=== PATIENT | male | born 1950 | race Caucasian/White ===

== ENCOUNTER 2017-11-12 15:59 | Inpatient (IN) | payer MEDICARE, OTHER ==
[2017-11-12] VITALS (14 sets, daily range): BP systolic 135–153; BP diastolic 62–109
[~2017-11-12] VITALS: Ht 167.6 cm; Wt 74.1 kg
--- OUTSIDE RECORDS SUMMARY | 2017-11-12 16:04 | XMS REPORT | Continuity of Care Document ---
Author Author [facility] Address Unknown Phone Unavailable Allergies There is no data. Medications There is no data. Problems Date Dx Coded Attending Type Code Diagnosis Diagnosed By 06/12/2013 RHONDA STEVENSON DO V06.1 TDAP DX Procedures There is no data. Results Test Result Range Comp. Metabolic Panel (14) - 02/21/17 09:38 Glucose, Serum 93 mg/dL 65-99 BUN 15 mg/dL 8-27 Creatinine, Serum 0.89 mg/dL 0.76-1.27 eGFR If NonAfricn Am 87 mL/min/1.73 >59 eGFR If Africn Am 101 mL/min/1.73 >59 BUN/Creatinine Ratio 17 10-24 Sodium, Serum 142 mmol/L 134-144 Potassium, Serum 4.9 mmol/L 3.5-5.2 Chloride, Serum 103 mmol/L 96-106 Carbon Dioxide, Total 24 mmol/L 18-29 Calcium, Serum 9.3 mg/dL 8.6-10.2 Protein, Total, Serum 6.6 g/dL 6.0-8.5 Albumin, Serum 4.1 g/dL 3.6-4.8 Globulin, Total 2.5 g/dL 1.5-4.5 A/G Ratio 1.6 1.2-2.2 Bilirubin, Total 0.5 mg/dL 0.0-1.2 Alkaline Phosphatase, S 86 IU/L 39-117 AST (SGOT) 11 IU/L 0-40 ALT (SGPT) 8 IU/L 0-44 Lipid Panel - 02/21/17 09:38 Cholesterol, Total 209 mg/dL 100-199 Triglycerides 119 mg/dL 0-149 HDL Cholesterol 55 mg/dL >39 VLDL Cholesterol Brett 24 mg/dL 5-40 LDL Cholesterol Calc 130 mg/dL 0-99 Encounters ACCT No. Visit Date/Time Discharge Status Pt. Type Provider Facility Loc./Unit Complaint [id number] 06/12/2013 10:25:00 06/12/2013 23:59:59 CLS Outpatient RHONDA STEVENSON DO [id number] 02/22/2017 08:07:00 Document Registration [id number] 05/21/2017 16:20:00 05/21/2017 23:59:59 CLS Outpatient RAJIV CORTEZ APRN [facility] [id number] 02/23/2014 11:41:07 02/23/2014 23:59:00 DIS Outpatient [facility] FRDCCL [id number] 02/08/2014 11:01:14 02/08/2014 23:59:00 DIS Outpatient [facility] [id number]
--- OUTSIDE RECORDS SUMMARY | 2017-11-12 16:04 | XMS REPORT ---
Author RHONDA [facility] eClinical[employer] Address Unknown Phone Unavailable Care Team Providers Care Ski Patrol Director Name Role Phone RHONDA STEVENSON CP Unavailable Allergies No Known Allergies Problems Problem Type Condition Code Onset Dates Condition Status Assessment Encounter for immunization Z23 Active Problem DTAP TEST V06.1 Active Medications No Known Medications Procedures Procedure Coding System Code Date SINGLE IMMUNIZATION ADMIN CPT-4 22467 May 17, 2015 FLUARIX QUAD (3 & UP)-GSK-2014 CPT-4 05055 May 17, 2015 Results No Known Results Immunizations Vaccine Administration Date FLUARIX QUAD (3 & UP)-GSK-2014May 17, 2015 Summary Purpose eClinicalWorks Submission
--- OUTSIDE RECORDS SUMMARY | 2017-11-12 16:04 | XMS REPORT ---
Author Author RAJIV CORTEZ Organization e[employer] Address Unknown Phone Unavailable Care Team Providers Care Structural Metal Worker Name Role Phone RAJIV CORTEZ CP Unavailable Allergies, Adverse Reactions, Alerts Substance Reaction Event Type sulfa drugs Swollen/Sore Tongue Drug Allergy Problems Problem Type Condition Code Onset Dates Condition Status Assessment Establishing care with new doctor, encounter for Z71.89 Active Assessment Left shoulder pain M25.512 Active Problem DTAP TEST V06.1 Active Assessment Hard of hearing, bilateral H91.93 Active Assessment Nicotine abuse Z72.0 Active Medications No Known Medications Procedures Procedure Coding System Code Date Office Visit, New Pt., Level 3 CPT-4 92381 Jun 23, 2015 [facility] VISIT NEW PATIENT CPT-4 G0466 Jun 23, 2015 Vital Signs Date/Time: Jun 23, 2015 Temperature 98.2 F Weight 157.4 lbs Height 67.0 in BMI 24.65 Index Blood Pressure Diastolic 72 mmHg Blood Pressure Systolic 132 mmHg Cardiac Monitoring Heart Rate 64 bpm Results No Known Results Summary Purpose eClinicalWorks Submission
--- OUTSIDE RECORDS SUMMARY | 2017-11-12 16:04 | XMS REPORT ---
Author Author RAJIV CORTEZ [facility] Address [address] [place] [address] Care Team Providers Care Bench Assembler Battery Name Role Phone RAJIV CORTEZ Unavailable PROBLEMS Type Condition ICD9-CM Code FTI29-RR Code Onset Dates Condition Status SNOMED Code Problem Benign prostatic hyperplasia with lower urinary tract symptoms N40.1 Active 072996241 Problem DTAP TEST V06.1 Active Problem History of colon polyps Z86.010 Active 684925939 Problem Nicotine abuse Z72.0 Active 92415200 Problem Bradycardia R00.1 Active 08447451 ALLERGIES Substance Reaction Event Type Date Status Sulfamethoxazole-Trimethoprim Unknown Drug Allergy Jul, Active SOCIAL HISTORY No smoking Hx information available PLAN OF CARE Activity Details Follow Up 6 Months Reason:check up and fasting labs VITAL SIGNS Height 67.0 in 2016-07-18 Weight 165.7 lbs 2016-07-18 Temperature 98.4 degrees Fahrenheit 2016-07-18 Heart Rate 72 bpm 2016-07-18 Respiratory Rate 18 2016-07-18 BMI 25.95 kg/m2 2016-07-18 Blood pressure systolic 142 mmHg 2016-07-18 Blood pressure diastolic 78 mmHg 2016-07-18 MEDICATIONS Medication Instructions Dosage Frequency Start Date End Date Duration Status Flonase Allergy Relief 50 MCG/ACT Nasally Once a day 1 spray in each nostril 24h Active RESULTS No Results PROCEDURES Procedure Date Ordered Related Diagnosis Body Site [facility] VISIT ESTABLISHED PATIENT Jul 18, 2016 Office Visit, Est Pt., Level 3 Jul 18, 2016 IMMUNIZATIONS No Known Immunizations
[2017-11-12 16:14] LABS: BASOPHILS % (AUTO) 0 % (0-10); EOSINOPHILS # (AUTO) 0.1 10^3/uL (0.0-0.3); EOSINOPHILS % (AUTO) 1 % (0-10); HEMATOCRIT 41 % (40-54); HEMOGLOBIN 14.3 G/DL (13.3-17.7); LYMPHOCYTES # (AUTO) 2.9 X 10^3 (1.0-4.0); LYMPHOCYTES % (AUTO) 32 % (12-44); MEAN CORPUSCULAR HEMOGLOBIN 32 PG (25-34); MEAN CORPUSCULAR HGB CONC 35 G/DL (32-36); MEAN CORPUSCULAR VOLUME 92 FL (80-99); MEAN PLATELET VOLUME 10.1 FL (7.4-10.4); MONOCYTES # (AUTO) 1.1 X 10^3 (0.0-1.0); MONOCYTES % (AUTO) 12 % (0-12); NEUTROPHILS % (AUTO) 55 % (42-75); PLATELET COUNT 211 10^3/uL (130-400); RED BLOOD COUNT 4.47 10^6/uL (4.35-5.85); RED CELL DISTRIBUTION WIDTH 13.6 % (10.0-14.5); WHITE BLOOD COUNT 9.1 10^3/uL (4.3-11.0)
[2017-11-12 16:26] LABS: PROTHROMBIN TIME PATIENT 12.8 SEC (12.2-14.7)
[2017-11-12 16:32] LABS: ALANINE AMINOTRANSFERASE 10 U/L (0-55); ALKALINE PHOSPHATASE 71 U/L (40-136); BILIRUBIN,TOTAL 0.6 MG/DL (0.1-1.0); BUN/CREATININE RATIO 12; CALCIUM 9.2 MG/DL (8.5-10.1); CARBON DIOXIDE 22 MMOL/L (21-32); CHLORIDE 105 MMOL/L (98-107); CREATININE SERUM 0.83 MG/DL (0.60-1.30); GFR ESTIMATED > 60; GLUCOSE 89 MG/DL (70-105); POTASSIUM 3.9 MMOL/L (3.6-5.0); SODIUM 138 MMOL/L (135-145); TOTAL PROTEIN 6.6 GM/DL (6.4-8.2)
--- NOTE | 2017-11-12 16:38 | Diagnostic Imaging Report ---
INDICATION: Chest pain and back pain. TIME OF EXAM 4:24 PM COMPARISON: No prior studies are available for comparison. FINDINGS: The heart size is normal. The pulmonary vascularity is unremarkable. The lungs are clear. No infiltrate, effusion or pneumothorax is detected. Impression: No acute cardiopulmonary process is detected. Dictated by: Dictated on workstation # [id number]
[2017-11-12 16:40] LABS: MYOGLOBIN SERUM 40.2 NG/ML (10.0-92.0)
[2017-11-12] MEDS ORDERED: IOHEXOL 350 MG/ML 150 ML (OMNIPAQUE 350) VIAL IV ONE (16:45)
[2017-11-12] MEDS ORDERED: NS 250 ML (IVPB) BAG IV ONE (16:45)
[2017-11-12] MEDS ORDERED: fentaNYL INJECTION 100 MCG/2 ML AMP IVP ONE (17:00)
[2017-11-12] MEDS ORDERED: ONDANSETRON 4 MG/2 ML (SDV) Z0FRAN IVP ONE (17:00)
--- NOTE | 2017-11-12 17:17 | Diagnostic Imaging Report ---
PROCEDURE: CT angiography of the chest with contrast. TECHNIQUE: Multiple contiguous axial images were obtained through the chest after uneventful bolus administration of intravenous contrast. Reconstructed CTA MIP acquisitions were also performed. DATE: November 12, 2017. COMPARISON: Chest radiograph November 12, 2017. INDICATION: 67-year-old male, chest pain. FINDINGS: There is no identified pulmonary nodule or mass. There are upper lobe predominant changes of emphysema. There is nonspecific right lower lobe, mild right middle lobe, and right upper lobe bronchial wall thickening. There is also nonspecific mild left upper lobe and left lower lobe bronchial wall thickening. There are predominantly linear opacities in the dependent aspect of the right lower lobe and also within the left lower lobe most likely reflecting atelectasis. There is no otherwise noted focal airspace consolidation. There is no pneumothorax. There is no pleural effusion. There is no identified pulmonary embolus. The main pulmonary artery is normal in caliber. The heart is not enlarged. There is no identified pericardial effusion. There are atherosclerotic calcifications. There are 2 left-sided renal arteries. There is no identified mediastinal, hilar, or axillary lymph node which meets CT size criteria for adenopathy. There is a 4 mm lesion in the left lobe of the liver on axial image 141 which is too small to characterize. There is a low-attenuation right thyroid nodule on axial image 145 measuring 2.3 cm in size with internal attenuation of 17 Hounsfield units on postcontrast imaging. There is a 2.2 cm left adrenal nodule with internal attenuation measuring 24 Hounsfield units on postcontrast imaging. These adrenal nodules are technically indeterminate. Additional limited evaluation of the visualized portions of the upper abdomen is unremarkable. There are multilevel degenerative changes of the spine. There is no identified acute bony abnormality. IMPRESSION: CT CHEST. 1. No identified pulmonary embolus. 2. Nonspecific multilobar bronchial wall thickening. Mild lower lobe atelectasis. No additional airspace consolidation. 3. Indeterminate bilateral adrenal nodules. Dedicated renal mass protocol CT or MRI with and without contrast for further assessment. Dictated by: Dictated on workstation # [id number]
--- NOTE | 2017-11-12 17:23 | ED Chest Pain ---
General Chief Complaint: Chest Pain Stated Complaint: CP Nursing Triage Note: pt brought to ed via ems. pt states he was at home today mowing the lawn when he started having chest pain around 1200. pt said he stopped and rested and then began working again. pt states he did this several times today. pt's states the pt then began dry heaving for approximately 10 minutes straight without producing emesis. ems was then called at that time. ems states pt was given two nitro and after the second nitro the pt became diaphoretic and vitals dropped. Nursing Sepsis Screen: No Definite Risk Source: patient, EMS Exam Limitations: no limitations History of Present Illness Date Seen by Provider: November 12, 2017 Time Seen by Provider: 16:01 Initial Comments This 67-year-old gentleman presents to the emergency room via EMS after experiencing chest pain with exertion while mowing the lawn and working in the yard. Pain would improve when he rested and worsen with activity. Pain did not change with deep breathing. Patient has no history of cardiac problems. He is a smoker. EMS administered aspirin 324 mg as well as 2 doses of nitroglycerin. Patient tolerated the first dose of nitroglycerin well but developed bradycardia, hypotension, and altered mental status after the second dose. IV fluids were initiated and blood pressure began to return to normal. Pain seems to be focused right of the sternum and radiates to the upper back. Allergies and Home Medications Allergies Coded Allergies: Sulfa (Sulfonamide Antibiotics) (Unverified Adverse Reaction, Mild, 11/12/17 ) pt states sulfa gives him a "sore tongue" Patient Home Medication List Home Medication List Reviewed: Yes Review of Systems Constitutional: diaphoresis EENTM: No Symptoms Reported Respiratory: No Symptoms Reported Cardiovascular: See HPI Gastrointestinal: No Symptoms Reported Genitourinary: No Symptoms Reported Musculoskeletal: no symptoms reported Skin: no symptoms reported Psychiatric/Neurological: See HPI Endocrine: No Symptoms Reported Hematologic/Lymphatic: No Symptoms Reported Past Prmprvb-Yugaem-Obgake Hx Patient Social History Alcohol Use: Denies Use Recreational Drug Use: No Smoking Status: Current Everyday Smoker Type Used: Cigarettes 2nd Hand Smoke Exposure: Yes Recent Foreign Travel: No Contact w/Someone Who Travel: No Recent Infectious Disease Expo: No Physical Abuse: No Sexual Abuse: No Seasonal Allergies Seasonal Allergies: No Past Medical History Surgeries: No Respiratory: No Cardiac: No Neurological: No Genitourinary: No Gastrointestinal: No Musculoskeletal: No Endocrine: No HEENT: No Cancer: No Psychosocial: No Nursing Suicide Risk Score: 0 Integumentary: No Blood Disorders: No Adverse Reaction/Blood Tranf: No Family Medical History Vascular Disease (brain aneurysm) Physical Exam Vital Signs Vital Signs - First Documented 11/12/17 15:59 Temp 96.5 Pulse 48 Resp 20 B/P (MAP) 109/64 (79) Pulse Ox 94 O2 Delivery Room Air Capillary Refill : Less Than 3 Seconds General Appearance: No Apparent Distress, WD/WN HEENT: PERRL/EOMI, Normal ENT Inspection Neck: Normal Inspection Respiratory: Lungs Clear, Normal Breath Sounds, No Accessory Muscle Use, No Respiratory Distress Cardiovascular: No Edema, No Murmur, Normal Peripheral Pulses, Bradycardia Gastrointestinal: Normal Bowel Sounds, Non Tender, Soft Extremity: Normal Inspection, Non Tender, No Pedal Edema Neurologic/Psychiatric: Alert, Oriented x3, No Motor/Sensory Deficits, Normal Mood/Affect, finance clerk II-XII Norm as Tested, Other (patient became alert after the hypotension and bradycardia resolved) Skin: Normal Color, Diaphoresis Progress/Results/Core Measures Lab Results Laboratory Tests Test 11/12/17 16:05 Range/Units White Blood Count 9.1 4.3-11.0 10^3/uL Red Blood Count 4.47 4.35-5.85 10^6/uL Hemoglobin 14.3 13.3-17.7 G/DL Hematocrit 41 40-54 % Mean Corpuscular Volume 92 80-99 FL Mean Corpuscular Hemoglobin 32 25-34 PG Mean Corpuscular Hemoglobin Concent 35 32-36 G/DL Red Cell Distribution Width 13.6 10.0-14.5 % Platelet Count 211 130-400 10^3/uL Mean Platelet Volume 10.1 7.4-10.4 FL Neutrophils (%) (Auto) 55 42-75 % Lymphocytes (%) (Auto) 32 12-44 % Monocytes (%) (Auto) 12 0-12 % Eosinophils (%) (Auto) 1 0-10 % Basophils (%) (Auto) 0 0-10 % Neutrophils # (Auto) 5.0 1.8-7.8 X 10^3 Lymphocytes # (Auto) 2.9 1.0-4.0 X 10^3 Monocytes # (Auto) 1.1 H 0.0-1.0 X 10^3 Eosinophils # (Auto) 0.1 0.0-0.3 10^3/uL Basophils # (Auto) 0.0 0.0-0.1 10^3/uL Prothrombin Time 12.8 12.2-14.7 SEC INR Comment 1.0 0.8-1.4 Activated Partial Thromboplast Time 41 H 24-35 SEC Sodium Level 138 135-145 MMOL/L Potassium Level 3.9 3.6-5.0 MMOL/L Chloride Level 105 98-107 MMOL/L Carbon Dioxide Level 22 21-32 MMOL/L Anion Gap 11 5-14 MMOL/L Blood Urea Nitrogen 10 7-18 MG/DL Creatinine 0.83 0.60-1.30 MG/DL Estimat Glomerular Filtration Rate > 60 BUN/Creatinine Ratio 12 Glucose Level 89 70-105 MG/DL Calcium Level 9.2 8.5-10.1 MG/DL Magnesium Level 2.0 1.8-2.4 MG/DL Total Bilirubin 0.6 0.1-1.0 MG/DL Aspartate Amino Transf (AST/SGOT) 13 5-34 U/L Alanine Aminotransferase (ALT/SGPT) 10 0-55 U/L Alkaline Phosphatase 71 40-136 U/L Myoglobin 40.2 10.0-92.0 NG/ML Troponin I < 0.30 <0.30 NG/ML Total Protein 6.6 6.4-8.2 GM/DL Albumin 4.0 3.2-4.5 GM/DL My Orders Orders - TIFFANY BREWER MD Cbc With Automated Diff (11/12/17 16:04) Magnesium (11/12/17 16:04) Chest 1 View, Ap/Pa Only (11/12/17 16:04) Ekg Tracing (11/12/17 16:04) Cardiac Profile 1 (11/12/17 16:04) Comprehensive Metabolic Panel (11/12/17 16:04) Myoglobin Serum (11/12/17 16:04) Protime With Inr (11/12/17 16:04) Partial Thromboplastin Time (11/12/17 16:04) O2 (11/12/17 16:04) Monitor-Rhythm Ecg Trace Only (11/12/17 16:04) Lipid Panel (11/13/17 06:00) Saline Lock/Iv-Start (11/12/17 16:04) Ct Angio Chest W (11/12/17 16:34) Iohexol Injection (Omnipaque 350 Mg/Ml 1 (11/12/17 16:45) Ns (Ivpb) (Sodium Chloride 0.9%) (11/12/17 16:45) Fentanyl Injection (Sublimaze Injection (11/12/17 17:00) Ondansetron Injection (Zofran Injectio (11/12/17 17:00) Contrast Received (Contrast Received) (11/12/17 17:30) Ekg Tracing (11/12/17 17:35) Morphine Injection (Morphine Injection (11/12/17 17:45) Heparin Drip 25865 Unit/500ml (Heparin (11/12/17 17:42) Heparin (Bolus Per Protocol) (Heparin (B (11/12/17 17:42) Medications Given in ED Current Medications Medications Dose Ordered Sig/Steph Route Start Time Stop Time Status Last Admin Dose Admin Fentanyl Citrate 50 mcg ONCE ONCE IVP 11/12/17 17:00 11/12/17 17:01 DC 11/12/17 17:20 50 MCG Heparin Sodium/ Dextrose 500 ml @ 0 mls/hr Q0M ONCE IV 11/12/17 17:42 11/12/17 17:43 DC 11/12/17 18:07 16 MLS/HR Iohexol 125 ml ONCE ONCE IV 11/12/17 16:45 11/12/17 17:22 DC 11/12/17 16:49 125 ML Morphine Sulfate 2 mg ONCE ONCE IVP 11/12/17 17:45 11/12/17 17:46 DC 11/12/17 18:04 2 MG Ondansetron HCl 8 mg ONCE ONCE IVP 11/12/17 17:00 11/12/17 17:01 DC 11/12/17 17:20 8 MG Sodium Chloride 250 ml ONCE ONCE IV 11/12/17 16:45 11/12/17 17:22 DC 11/12/17 16:49 80 ML Vital Signs/I&O 11/12/17 15:59 Temp 96.5 Pulse 48 Resp 20 B/P (MAP) 109/64 (79) Pulse Ox 94 O2 Delivery Room Air Blood Pressure Mean: 79 Progress Note : Progress Note Patient received aspirin and 2 doses of nitroglycerin via EMS. Nitroglycerin causes a sinus bradycardia and hypotension. This resolved shortly after arrival. A liter of IV fluids was infused. Pain rebounded and fentanyl was given followed by morphine 2 mg. EKG was performed and showed no ischemia although there was some T-wave inversion in V2. No ischemia was noted. EKG was repeated. Because of the hypotension, bradycardia, and chest pain radiating to the back, CT angiogram of the chest was performed. No acute pathology was identified. Incidental finding of adrenal nodules was noted. Case was reviewed with Dr. Yusuf who would like to patient started on a heparin drip and admitted for further evaluation. He requests that the patient be NPO after midnight in preparation for studies. EKG #1: EKG Time: 16:02 Rate: 55 Rhythm: Normal Sinus Intervals: Normal Comment Normal sinus rhythm with no ST elevation or depression. Automated read states incomplete right bundle branch block. There is T-wave inversion in V2. EKG #2: EKG Time: 17:44 Rate: 46 Rhythm: S.Agustin Comment Sinus bradycardia with no ST elevation or depression. No abnormal intervals or axis deviation. T-wave inversion in V2 persist. Diagonstic Imaging: CT Plain Films/CT/US/NM/MRI: chest Comments CT angiogram of the chest viewed by me and report reviewed. See report below: NAME: FABIOLA DIAZ [facility] REC#: [id number] PT STATUS: REG ER : 1950 PHYSICIAN: TIFFANY BREWER MD ADMIT DATE: 11/12/17/ER Draft Date of Exam:11/12/17 CT ANGIO CHEST W PROCEDURE: CT angiography of the chest with contrast. TECHNIQUE: Multiple contiguous axial images were obtained through the chest after uneventful bolus administration of intravenous contrast. Reconstructed CTA MIP acquisitions were also performed. DATE: November 12, 2017. COMPARISON: Chest radiograph November 12, 2017. INDICATION: 67-year-old male, chest pain. FINDINGS: There is no identified pulmonary nodule or mass. There are upper lobe predominant changes of emphysema. There is nonspecific right lower lobe, mild right middle lobe, and right upper lobe bronchial wall thickening. There is also nonspecific mild left upper lobe and left lower lobe bronchial wall thickening. There are predominantly linear opacities in the dependent aspect of the right lower lobe and also within the left lower lobe most likely reflecting atelectasis. There is no otherwise noted focal airspace consolidation. There is no pneumothorax. There is no pleural effusion. There is no identified pulmonary embolus. The main pulmonary artery is normal in caliber. The heart is not enlarged. There is no identified pericardial effusion. There are atherosclerotic calcifications. There are 2 left-sided renal arteries. There is no identified mediastinal, hilar, or axillary lymph node which meets CT size criteria for adenopathy. There is a 4 mm lesion in the left lobe of the liver on axial image 141 which is too small to characterize. There is a low-attenuation right thyroid nodule on axial image 145 measuring 2.3 cm in size with internal attenuation of 17 Hounsfield units on postcontrast imaging. There is a 2.2 cm left adrenal nodule with internal attenuation measuring 24 Hounsfield units on postcontrast imaging. These adrenal nodules are technically indeterminate. Additional limited evaluation of the visualized portions of the upper abdomen is unremarkable. There are multilevel degenerative changes of the spine. There is no identified acute bony abnormality. IMPRESSION: CT CHEST. 1. No identified pulmonary embolus. 2. Nonspecific multilobar bronchial wall thickening. Mild lower lobe atelectasis. No additional airspace consolidation. 3. Indeterminate bilateral adrenal nodules. Dedicated renal mass protocol CT or MRI with and without contrast for further assessment. Dictated on workstation # [id number] Dict: 11/12/171706 Trans: 11/12/17 1717 [facility] [id number] Interpreted by: AVERY FORREST MD Diagonstic Imaging: Xray Plain Films/CT/US/NM/MRI: chest Comments Chest x-ray viewed by me and report reviewed. See report below: NAME: FABIOLA DIAZ [facility] REC#: [id number] PT STATUS: REG ER : 1950 PHYSICIAN: TIFFANY BREWER MD ADMIT DATE: 11/12/17/ER Draft Date of Exam:11/12/17 CHEST 1 VIEW, AP/PA ONLY INDICATION: Chest pain and back pain. TIME OF EXAM 4:24 PM COMPARISON: No prior studies are available for comparison. FINDINGS: The heart size is normal. The pulmonary vascularity is unremarkable. The lungs are clear. No infiltrate, effusion or pneumothorax is detected. Impression: No acute cardiopulmonary process is detected. Dictated on workstation # [id number] Dict: 11/12/17 1635 Trans: 11/12/17 1637 [facility] [id number] Interpreted by: SHAHNAZ QUIROGA MD Departure Communication (Admissions) Time/Spoke to Admitting Phy: 17:40 Dr. Covarrubias Time/Spoke to Consulting Phy: 17:50 Dr. Yusuf Impression Primary Impression: Chest pain on exertion Additional Impressions: Sinus bradycardia Adrenal nodule Disposition: ADMITTED INPATIENT Condition: Improved Admissions Decision to Admit Reason: Admit from ER (General) Decision to Admit/Date: November 12, 2017 Time/Decision to Admit Time: 16:10 Departure-Patient Inst. Referrals: [facility]/ (PCP) Primary Care Physician RAJIV CORTEZ (Family) Primary Care Physician TIFFANY BREWER MD November 12, 2017 17:23
[2017-11-12] MEDS ORDERED: RECEIVED CONTRAST (Hold Metformin) IV SCH (17:30)
[2017-11-12] MEDS ORDERED: HEParin 1000 UNIT/ML (10ML VIAL) FOR BOLUS IV ONE (17:42)
[2017-11-12] MEDS ORDERED: HEParin DRIP 25000 UNIT/500ML 500 ML IV ONE (17:42)
[2017-11-12] MEDS ORDERED: morphine INJ 10 MG/ML 1ML (SYR OR VIAL) IVP ONE (17:45)
--- OUTSIDE RECORDS SUMMARY | 2017-11-12 18:30 | XMS REPORT | Continuity of Care Document ---
Author Author [facility] Address Unknown Phone Unavailable Allergies There [...] 5-40 LDL Cholesterol Calc 130 mg/dL 0-99 Complete blood count (CBC) with automated white blood cell (WBC) differential - 11/12/17 16:05 Blood leukocytes automated count (number/volume) 9.1 10*3/uL 4.3-11.0 Blood erythrocytes automated count (number/volume) 4.47 10*6/uL 4.35-5.85 Venous blood hemoglobin measurement (mass/volume) 14.3 g/dL 13.3-17.7 Blood hematocrit (volume fraction) 41 % 40-54 Automated erythrocyte mean corpuscular volume 92 [foz_us] 80-99 Automated erythrocyte mean corpuscular hemoglobin (mass per erythrocyte) 32 pg 25-34 Automated erythrocyte mean corpuscular hemoglobin concentration measurement ( mass/volume) 35 g/dL 32-36 Automated erythrocyte distribution width ratio 13.6 % 10.0-14.5 Automated blood platelet count (count/volume) 211 10*3/uL 130-400 Automated blood platelet mean volume measurement 10.1 [foz_us] 7.4-10.4 Automated blood neutrophils/100 leukocytes 55 % 42-75 Automated blood lymphocytes/100 leukocytes 32 % 12-44 Blood monocytes/100 leukocytes 12 % 0-12 Automated blood eosinophils/100 leukocytes 1 % 0-10 Automated blood basophils/100 leukocytes 0 % 0-10 Blood neutrophils automated count (number/volume) 5.0 10*3 1.8-7.8 Blood lymphocytes automated count (number/volume) 2.9 10*3 1.0-4.0 Blood monocytes automated count (number/volume) 1.1 10*3 0.0-1.0 Automated eosinophil count 0.1 10*3/uL 0.0-0.3 Automated blood basophil count (count/volume) 0.0 10*3/uL 0.0-0.1 Comprehensive metabolic panel - 11/12/17 16:05 Serum or plasma sodium measurement (moles/volume) 138 mmol/L 135-145 Serum or plasma potassium measurement (moles/volume) 3.9 mmol/L 3.6-5.0 Serum or plasma chloride measurement (moles/volume) 105 mmol/L 98-107 Carbon dioxide 22 mmol/L 21-32 Serum or plasma anion gap determination (moles/volume) 11 mmol/L 5-14 Serum or plasma urea nitrogen measurement (mass/volume) 10 mg/dL 7-18 Serum or plasma creatinine measurement (mass/volume) 0.83 mg/dL 0.60-1.30 Serum or plasma urea nitrogen/creatinine mass ratio 12 NRG Serum or plasma creatinine measurement with calculation of estimated glomerular filtration rate > NRG Serum or plasma glucose measurement (mass/volume) 89 mg/dL 70-105 Serum or plasma calcium measurement (mass/volume) 9.2 mg/dL 8.5-10.1 Serum or plasma total bilirubin measurement (mass/volume) 0.6 mg/dL 0.1-1.0 Serum or plasma alkaline phosphatase measurement (enzymatic activity/volume) 71 U/L 40-136 Serum or plasma aspartate aminotransferase measurement (enzymatic activity/ volume) 13 U/L 5-34 Serum or plasma alanine aminotransferase measurement (enzymatic activity/volume ) 10 U/L 0-55 Serum or plasma protein measurement (mass/volume) 6.6 g/dL 6.4-8.2 Serum or plasma albumin measurement (mass/volume) 4.0 g/dL 3.2-4.5 Magnesium - 11/12/17 16:05 Magnesium 2.0 mg/dL 1.8-2.4 PT panel in platelet poor plasma by coagulation assay - 11/12/17 16:05 Prothrombin time (PT) in platelet poor plasma by coagulation assay 12.8 s 12.2-14.7 INR in platelet poor plasma or blood by coagulation assay 1.0 0.8-1.4 Activated partial thromboplastin time (aPTT) in platelet poor plasma bycoagulation assay - 11/12/17 16:05 Activated partial thromboplastin time (aPTT) in platelet poor plasma bycoagulation assay 41 s 24-35 Serum or plasma troponin i.cardiac measurement (mass/volume) - 11/12/17 16:05 Serum or plasma troponin i.cardiac measurement (mass/volume) < ng/ mL <0.30 Myoglobin, serum - 11/12/17 16:05 Myoglobin, serum 40.2 ng/mL 10.0-92.0 Encounters ACCT No. Visit Date/Time Discharge Status Pt. Type Provider Facility Loc./Unit Complaint [id number] 06/12/2013 10:25:00 06/12/2013 23:59:[address] [facility] Outpatient GRAHAM RHONDA SORIANO [id number] 02/22/2017 08:07:00 Document Registration [id number] 11/12/2017 16:17:00 Document Registration [id number] 05/21/2017 16:20:00 05/21/2017 23:59:59 C[facility] Outpatient RAJIV CORTEZ APRN [facility] [id number] 02/23/2014 11:41:07 02/23/2014 23:59:00 DIS Outpatient [facility] FRDCCL [id number] 02/08/2014 11:01:14 02/08/2014 23:59:00 DIS Outpatient [facility] FLBJWL
[2017-11-12] MEDS ORDERED: CATHETER FLUSH 10 ML SYR IV PRN (20:00)
[2017-11-12] MEDS ORDERED: NS IV 1000 ML 0 ML ONE (20:54)
[2017-11-12] MEDS: CATHETER FLUSH 10 ML SYR IV SCH (21:03)
[2017-11-12] MEDS ORDERED: NS IV 1000 ML 1,000 ML IV SCH (21:15)
--- NOTE | 2017-11-12 21:18 | Consultation-Cardiology ---
HPI-Cardiology Cardiology Consultation Date of Consultation 11/12/17 Date of Admission Time Seen by Provider: 21:12 Indication: Chest pain and bradycardia HPI 67 years old gentleman with history of bradycardia, not taking any medication, active smoker, started having increasing chest pain with exertion which was worsening today. Called EMS, given 2 sublingual nitroglycerin which resulted in hypotension and syncopal episode in the ambulance. Resuscitated with fluids , continue to have chest pain described it as back pain radiating to the retrosternal area of his chest. No shortness of breath. No palpitation, other than the syncopal episode that occurred after the nitroglycerin did not have any previous syncope, reported that he was told in the past that he has bradycardia. Heart rate is in the 40s with occasional PVCs. Still adequate blood pressure at this time. Still having some active chest pain. Described it as 2/10 in intensity persistent pain. Home Medications & Allergies Allergies: Coded Allergies: Sulfa (Sulfonamide Antibiotics) (Unverified Adverse Reaction, Mild, 11/12/17 ) pt states sulfa gives him a "sore tongue" Home Medication List Reviewed: Yes Does not take any medication UDE-Rogpsl-Lpezeh Hx Patient Social History Marital Status: Employed/Student: employed Alcohol Use: Denies Use Recreational Drug Use: No Smoking Status: Current Everyday Smoker Type Used: Cigarettes 2nd Hand Smoke Exposure: Yes Recent Foreign Travel: No Recent Infectious Disease Expo: No Recent Hopitalizations: No Physical Abuse Screen: No Sexual Abuse: No Past Medical History no past medical history Family Medical History Significant Family History: Vascular Disease (brain aneurysm) Family History: Anxiety disorder G8 SISTER Arthritis 19 MOTHER FH: atrial fibrillation G8 SISTER FH: breast cancer in first degree relative G8 SISTER Constitutional: no symptoms reported, see HPI EENTM: see HPI, no symptoms reported Respiratory: no symptoms reported, see HPI Cardiovascular: see HPI, chest pain Gastrointestinal: see HPI, abdominal pain Genitourinary: no symptoms reported, see HPI Musculoskeletal: see HPI, back pain Skin: no symptoms reported, see HPI Psychiatric/Neurological: No Symptoms Reported, See HPI Reviewed Test Results Reviewed Test Results Lab Laboratory Tests Test 11/12/17 16:05 Range/Units White Blood Count 9.1 4.3-11.0 10^3/uL Red Blood Count 4.47 4.35-5.85 10^6/uL Hemoglobin 14.3 13.3-17.7 G/DL Hematocrit 41 40-54 % Mean Corpuscular Volume 92 80-99 FL Mean Corpuscular Hemoglobin 32 25-34 PG Mean Corpuscular Hemoglobin Concent 35 32-36 G/DL Red Cell Distribution Width 13.6 10.0-14.5 % Platelet Count 211 130-400 10^3/uL Mean Platelet Volume 10.1 7.4-10.4 FL Neutrophils (%) (Auto) 55 42-75 % Lymphocytes (%) (Auto) 32 12-44 % Monocytes (%) (Auto) 12 0-12 % Eosinophils (%) (Auto) 1 0-10 % Basophils (%) (Auto) 0 0-10 % Neutrophils # (Auto) 5.0 1.8-7.8 X 10^3 Lymphocytes # (Auto) 2.9 1.0-4.0 X 10^3 Monocytes # (Auto) 1.1 H 0.0-1.0 X 10^3 Eosinophils # (Auto) 0.1 0.0-0.3 10^3/uL Basophils # (Auto) 0.0 0.0-0.1 10^3/uL Prothrombin Time 12.8 12.2-14.7 SEC INR Comment 1.0 0.8-1.4 Activated Partial Thromboplast Time 41 H 24-35 SEC Sodium Level 138 135-145 MMOL/L Potassium Level 3.9 3.6-5.0 MMOL/L Chloride Level 105 98-107 MMOL/L Carbon Dioxide Level 22 21-32 MMOL/L Anion Gap 11 5-14 MMOL/L Blood Urea Nitrogen 10 7-18 MG/DL Creatinine 0.83 0.60-1.30 MG/DL Estimat Glomerular Filtration Rate > 60 BUN/Creatinine Ratio 12 Glucose Level 89 70-105 MG/DL Calcium Level 9.2 8.5-10.1 MG/DL Magnesium Level 2.0 1.8-2.4 MG/DL Total Bilirubin 0.6 0.1-1.0 MG/DL Aspartate Amino Transf (AST/SGOT) 13 5-34 U/L Alanine Aminotransferase (ALT/SGPT) 10 0-55 U/L Alkaline Phosphatase 71 40-136 U/L Myoglobin 40.2 10.0-92.0 NG/ML Troponin I < 0.30 <0.30 NG/ML Total Protein 6.6 6.4-8.2 GM/DL Albumin 4.0 3.2-4.5 GM/DL Physical Exam Vital Signs Vital Signs - First Documented 11/12/17 11/12/17 15:59 20:10 Temp 96.5 Pulse 48 Resp 20 B/P (MAP) 109/64 (79) Pulse Ox 94 O2 Delivery Room Air O2 Flow Rate 2.00 Capillary Refill : Less Than 3 Seconds General Appearance: No Apparent Distress, WD/WN Eyes: Bilateral Eye Normal Inspection, Bilateral Eye PERRL, Bilateral Eye EOMI HEENT: PERRL/EOMI, TMs Normal, Normal ENT Inspection, Pharynx Normal Neck: Full Range of Motion, Normal Inspection, Non Tender, Supple, Carotid Bruit Respiratory: Chest Non Tender, Lungs Clear, Normal Breath Sounds, No Accessory Muscle Use, No Respiratory Distress Cardiovascular: No Edema, No Gallop, No JVD, No Murmur, Normal Peripheral Pulses, Bradycardia Gastrointestinal: Normal Bowel Sounds, No Organomegaly, No Pulsatile Mass, Soft , Tenderness (Tenderness in the upper epigastric area), Other Back: Normal Inspection, No CVA Tenderness, No Vertebral Tenderness Extremity: Normal Capillary Refill, Normal Inspection, Normal Range of Motion, Non Tender, No Calf Tenderness, No Pedal Edema Neurologic/Psychiatric: Alert, Oriented x3, No Motor/Sensory Deficits, Normal Mood/Affect Skin: Normal Color, Warm/Dry Lymphatic: No Adenopathy A/P-Cardiology Admission Diagnosis Chest pain, unstable angina Sick sinus syndrome Syncope Hypertension Assessment/Plan Chest pain, resembling angina, unstable angina with nonspecific EKG changes. Cardec enzymes first set are negative, still having active pain, had a long discussion with the patient and his family, the son work with the [employer], requested to discuss with me the plan after doing the diagnostic heart catheter decided if we will proceed with stenting versus bypass surgery if needed. I will call the catheter lab team Syncope, hypotensive episode after sublingual nitroglycerin, recovered, feeling better at this time. Continue to monitor Sick sinus syndrome, bradycardia, patient is reporting that he has history of bradycardia and has been asymptomatic with it. I will continue monitoring for now. May require pacemaker Tobaccoism, patient is an active smoker. Discussed smoking cessation. Mild epigastric pain. CT scan was negative. Continue to monitor Hypertension, monitor blood pressure, cannot take beta blockers at this time. Questionable hyperlipidemia, I will evaluate lipid profile. 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 Will be followed and managed by primary care physician Clinical Quality Measures DVT/VTE Risk/Contraindication: Risk Factor Score Per Nursin RFS Level Per Nursing on Admit: 3=High LIZETT PÉREZ MD November 12, 2017 21:17
--- NOTE | 2017-11-12 21:25 | Cardiac Procedure Note-CS/ASA ---
Pre-Procedure Note Pre-Op Procedure Note H&P Reviewed The H&P was reviewed, patient examined and no changes noted. Date H&P Reviewed: November 12, 2017 Time H&P Reviewed: 21:24 Conscious Sedation Pre-Proced Time Reviewed: 21:24 ASA Class: 3 Airway Mallampati Classification: ([place] appropriate class) I. II. III, IV Lungs Heart ASA score ASA 1: a normal healthy patient ASA 2: a patient with a mild systemic disease (mid diabetes, controlled hypertension, obesity x ASA 3: a patient with a severe systemic disease that limits activity (angina , COPD, prior Myocardial infarction) ASA 4: a patient with an incapacitating disease that is a constant threat to life (CHF, renal failure) ASA 5: a moribund patient not expected to survive 24 hrs. (ruptured aneurysm) ASA 6: a declared brain patient whose organs are being harvested. For emergent operations, add the letter E after the classification Grade 3 Sedation Plan: Analgesia, Amnesia, Plan communicated to team members, Discussed options with patient/fam, Discussed risks with patient/fam Note The patient is an appropriate candidate to undergo the planned procedure, sedation, and anesthesia. The patient immediately re-assessed prior to indication. LIZETT PÉREZ MD November 12, 2017 21:25
[2017-11-12] MEDS ORDERED: fentaNYL INJECTION 100 MCG/2 ML AMP ONE (21:59)
[2017-11-12] MEDS ORDERED: LIDOCAINE 1% INJ 20 ML 20 ML VIAL ONE (21:59)
[2017-11-12] MEDS ORDERED: MIDAZOLAM 5 MG/5 ML (VERSED) VIAL ONE (21:59)
[2017-11-12] MEDS ORDERED: HEParin 1000 UNIT/ML (10ML VIAL) FOR BOLUS ONE (21:59)
[2017-11-12] MEDS ORDERED: NS IV 1000 ML 3,000 ML ONE (22:00)
[2017-11-12] MEDS ORDERED: PATIENT MAY USE OWN MEDS, ALL PO SCH (22:45)
--- NOTE | 2017-11-12 22:57 | Cardiac Cath Report ---
Cardiac Cath Report Physician (s)/Agriscience Technology Instructor (s) Physician LIZETT PÉREZ MD Pre-Procedure Diagnosis Pre-Procedure Diagnosis: chest pain, unstable angina Post-Procedure Note Procedure Start Date: November 12, 2017 Name of Procedure: Left heart catheterization Left ventriculogram Aortic arch angiogram Findings/Procedure Note PROCEDURE NOTE: After explaining the procedure to the patient, all pros and cons were explained , all questions were answered. The patient signed the consent and then he was placed on the cardiac catheterization laboratory. Groin was prepped SL fashion local anesthesia was used. Sheath placed in the right femoral artery. Peggy right and left catheter were used to access the coronary system. Pigtail was used to access the left ventricular cavity. A long exchange J-wire was used during the procedure due to difficulties advancing the wire Left ventriculogram was done Aortic arch angiogram was then At the end of the procedure the sheath was removed. 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 No dissection or aneurysm CONCLUSION: 1. [id number] coronary artery disease nonobstructive disease 2. Severe nonischemic cardiomyopathy with diffuse left ventricular hypokinesia more pronounced at the anterior wall and true apex with estimated ejection fraction 30 percent 3. Normal aortic arch and great neck vessels 4. Moderate disease was noted at the right common iliac artery incidentally 5. Sinus bradycardia with occasional PVCs noted during test with slow flow in the coronary system could be due to the bradycardia and low cardiac output DISCUSSION AND RECOMMENDATION: I will maximize medical therapy at this point, start DAMIÁN inhibitor, cannot tolerate beta blockers due to his severe bradycardia. Evaluate for other causes for cardiomyopathy, consideration for ICD implant Anesthesia Type: Conscious Sedation Estimated blood loss (mL): 10 ml Contrast Amount: 70 ml Total Radiation Dose: 577 mGy Post-Procedure Diagnosis Post-operative diagnosis: Nonischemic cardiomyopathy Congestive heart failure, acute left ventricular systolic dysfunction Coronary artery disease Hypertension Sick sinus syndrome with sinus bradycardia LIZETT PÉREZ MD November 12, 2017 10:57 pm
[2017-11-12] MEDS: NS IV 1000 ML 1,000 ML IV SCH (23:19)
[2017-11-12] MEDS ORDERED: morphine INJ 4 MG/ML 1 ML (VIAL/SYRINGE) IVP PRN (23:45)
[2017-11-13] VITALS (21 sets, daily range): BP systolic 111–142; BP diastolic 62–86
[2017-11-13] MEDS: NS IV 1000 ML 1,000 ML IV SCH ×2 (03:21→13:34)
[2017-11-13 04:19] LABS: BUN/CREATININE RATIO 11; CALCIUM 8.2 MG/DL (8.5-10.1); CARBON DIOXIDE 23 MMOL/L (21-32); CHLORIDE 108 MMOL/L (98-107); CHOLESTEROL 165 MG/DL (< 200); CREATININE SERUM 0.71 MG/DL (0.60-1.30); GFR ESTIMATED > 60; GLUCOSE 103 MG/DL (70-105); HDL CHOLESTEROL 42 MG/DL (40-60); MAGNESIUM 1.9 MG/DL (1.8-2.4); SODIUM 138 MMOL/L (135-145); TRIGLYCERIDES 150 MG/DL (<150); VLDL CHOLESTEROL 30 MG/DL (5-40)
[2017-11-13] MEDS: CATHETER FLUSH 10 ML SYR IV SCH ×3 (05:03→21:45)
[2017-11-13] MEDS ORDERED: ASPIRIN E.C. 325 MG (ECOTRIN) TABLET PO SCH (09:00)
[2017-11-13] MEDS: ASPIRIN E.C. 81 MG (ECOTRIN) TAB PO SCH (09:06)
[2017-11-13] MEDS: lisINopril 5 MG (PRINIVIL) TABLET PO SCH (09:06)
--- NOTE | 2017-11-13 09:21 | Electrophysiology Consultation ---
HPI-Cardiology Cardiology Consultation: Date of Consultation 11/13/17 Date of Admission Attending Physician Hanna Covarrubias DO Admitting Physician [place] Consulting Physician Sandy MUNOZ MD HPI: Time Seen by Provider: 09:30 Chief Complaint: Chest pain This is a 67-year-old gentleman who presented to the ER yesterday with complaints of chest pain with exertion while mowing his lawn. The pain was severe radiating to the shoulder. Worsening with activity. He is a smoker but denies any other cardiovascular history. Patient was substernal. Moderate to severe intensity. No relieving factors. Exacerbated with exertion. He was given aspirin and 2 doses of nitroglycerin. The second dose of nitroglycerin but developed hypotension and syncope with the second dose. Systolic blood pressure was 70 mmHg. IV fluids were given which improved blood pressure. Patient denied any recent upper respiratory tract infection or gastritis. He's had episodes of lightheadedness and rare episodes of near syncope but had no previous episodes of syncope. He also has had mild shortness of breath but nothing significant. He has noted decreased functional capacity in the last 6- 12 months and more fatigue. He does share with me that he has had bradycardia in the past and his heart rate is usually in the 50s. Due to recurrent chest pain coronary angiography was performed by Dr. Yusuf which showed nonobstructive mild CAD. On LV gram patient had dilated LV with an EF of 30 percent with anterior, apical hypokinesis. Patient had positive troponin. Echocardiogram shows normal LV function. Initially the patient was in sinus bradycardia with heart rate in the 40s. When I saw him he was sinus rhythm in the 60s. He had an episode of nonsustained monomorphic ventricular tachycardia for 3 seconds overnight. The patient was asymptomatic and with normal blood pressure. Review of Systems-Cardiology Review of Systems Constitutional: No As described under HPI, No no symptoms reported, No chills, No fever; lightheadedness; No malaise; tiredness; No weight loss, No weight gain , No other Eyes: No As described under HPI, No no symptoms reported, No blindness, No blurred vision, No contact lenses, No drainage, No decreased acuity, No foreign body sensation, No glasses, No inflammation, No pain, No photophobia, No previous injury, No shadows, No tunnel vision, No other, No vision change Ears/Nose/Throat: No As described under HPI, No no symptoms reported, No chronic hearing loss, No epistaxis, No ear discharge, No ear pain, No loose teeth, No mouth pain, No mouth swelling, No nasal drainage, No nose pain, No recent hearing loss, No throat pain, No throat swelling, No ulcerations, No other Respiratory: No no symptoms reported, No As described under HPI, No cough, No orthopnea; shortness of breath; No SOB with excertion, No SOB at rest, No stridor, No wheezing, No other Cardiovascular: chest pain Gastrointestinal: No no symptoms reported, No As described under HPI, No abdomen distended, No abdominal pain, No blood streaked bowels, No constipation , No diarrhea, No difficulty swallowing, No nausea, No poor appetite, No poor fluid intake, No rectal bleeding, No vomiting, No other, No nausea/vomiting/ diarrhea, No stool coloration changes Genitourinary: No no symptoms reported, No As described under HPI, No burning, No dysuria, No discharge, No frequency, No flank pain, No hematuria, No incontinence, No pain, No urgency, No other, No urine frequency changes, No urine coloration changes Musculoskeletal: No no symptoms reported, No As describe under HPI, No back pain, No gout, No joint pain, No joint swelling, No muscle pain, No muscle stiffness, No neck pain, No other Skin: No no symptoms reported, No As described under HPI, No change in color, No change in hair/nails, No dryness, No lesions, No lumps, No rash, No other, No skin related problems, No ulcerations, No rash on exposed areas, No ulcerations on exposed areas Psychiatric/Neurological: No no symptoms reported, No As described under HPI, No anxiety, No depression, No emotional problems, No headache, No numbness, No pre-existing deficit, No seizure, No tingling, No tremors, No weakness, No other , No focal weakness, No syncope Hematologic: No no symptoms reported, No As described under HPI, No anemia, No blood clots, No easy bleeding, No easy bruising, No swollen glands, No other, No bleeding abnormalities IIA-Cpzbus-Vxgrtb Hx Patient Social History Marrital Status: Employed/Student: employed Alcohol Use: Denies Use Recreational Drug Use: No Smoking Status: Current Everyday Smoker Type Used: Cigarettes 2nd Hand Smoke Exposure: Yes Recent Foreign Travel: No Recent Infectious Disease Expo: No Hospitalization with Isolation: Denies Physical Abuse Screen: No Sexual Abuse: No Past Medical History PMH As described under Assessment. Family Medical History Family History: Anxiety disorder G8 SISTER Arthritis 19 MOTHER FH: atrial fibrillation G8 SISTER FH: breast cancer in first degree relative G8 SISTER Allergies and Home Medications Allergies Coded Allergies: Sulfa (Sulfonamide Antibiotics) (Unverified Adverse Reaction, Mild, 11/12/17 ) pt states sulfa gives him a "sore tongue" Home Medications No Active Prescriptions or Reported Meds Patient Home Medication List Home Medication List Reviewed: Yes Physical Exam-Cardiology Physical Exam Vital Signs/I&O 11/13/17 11/13/17 11/13/17 11/13/17 02:00 03:00 03:20 03:20 Temp 98.0 Pulse 59 46 Resp 13 15 B/P (MAP) 131/86 (101) 124/76 (92) Pulse Ox 95 95 O2 Delivery Nasal Cannula Nasal Cannula Nasal Cannula Nasal Cannula O2 Flow Rate 2.00 2.00 2.00 2.00 11/13/17 11/13/17 11/13/17 11/13/17 04:00 05:00 06:00 07:00 Pulse 56 54 78 54 Resp 21 13 18 13 B/P (MAP) 137/73 (94) 141/69 (93) 140/71 (94) 126/68 (87) Pulse Ox 96 95 96 95 O2 Delivery Nasal Cannula Nasal Cannula Nasal Cannula Nasal Cannula O2 Flow Rate 2.00 2.00 2.00 2.00 11/13/17 11/13/17 11/13/17 11/13/17 07:01 08:00 08:00 08:00 Temp 98.6 Pulse 73 O2 Delivery Nasal Cannula Nasal Cannula Nasal Cannula O2 Flow Rate 2.00 2.00 2.00 11/13/17 11/13/17 11/13/17 11/13/17 08:00 09:00 09:00 10:00 Pulse 73 52 57 Resp 21 29 11 B/P (MAP) 121/73 (89) 129/74 (92) 136/77 (96) Pulse Ox 96 96 94 O2 Delivery Nasal Cannula Room Air Room Air Room Air O2 Flow Rate 2.00 11/13/17 11/13/17 11/13/172/18 10:01 11:00 12:00 12:00 Temp 97.1 Pulse 67 Resp 11 B/P (MAP) 135/78 (97) Pulse Ox 94 O2 Delivery Nasal Cannula Room Air Room Air O2 Flow Rate 2.00 11/13/17 00:00 Intake Total 75 ml Output Total 250 ml Balance -175 ml Capillary Refill : Less Than 3 Seconds Constitutional: appears stated age, AAO x 3; No apparent distress; well- developed, well-nourished HEENT: PERRL; No normal ENT inspection, No TMs normal, No pharynx normal, No scleral icterus (R), No scleral icterus (L), No pale conjunctivae (R), No pale conjunctivae (L), No photophobia, No TM abnormal (R), No TM abnormal (L), No pharyngeal erythema, No tonsillar exudate, No other, No discharge, No EOMI; hearing is well preserved; No hard of hearing; oral hygience is good; No ulceration, No xanthelasmas are seen Neck: No non-tender, No full range of motion, No supple, No normal inspection, No carotid bruit, No limited range of motion, No lymphadenopathy (R), No lymphadenopathy (L), No tender lateral, No tender midline, No thyromegaly, No other; carotid pulses are 2 + bilaterally; No with good upstrokes Respiratory: No accessory muscle use, No respiratory distress, No chest tender , No chest expansion is symmetric; chest is bilaterally symmetric; No lungs clear to percussion; lungs clear to auscultation; No crackles, No rhonchi, No rales, No stridor, No wheezing, No pleural rub, No other Cardiovascular: regular rate-rhythm; No irregularly irregular, No extra beats, No parasternal heave is noted, No JVD, No edema, No bradycardia, No tachycardia , No point of maximal impulse, No cardiac thrills are palpable; S1 and S2; No gallop/S3, No gallop/S4, No diastolic murmur, No systolic murmur, No friction rub, No click, No other Gastrointestinal: No tender, No soft, No round, No distended, No pulsatile mass , No organomegaly, No guarding, No rebound, No tenderness, No hernia, No mass, No audible bowel sounds, No abnormal bowel sounds, No abdominal bruits, No spleenomegaly, No other Rectal: deferred Extremities: No normal range of motion, No non-tender, No normal inspection, No pedal edema, No calf tenderness, No normal capillary refill, No pelvis stable , No calf tenderness, No inflammation, No pedal edema, No slow capillary refill , No swelling, No other, No abrasion, No clubbing, No cyanosis, No ecchymosis, No laceration, No no lower extremity edema bilateral, No significant edema, No tenderness, No wound Neurologic/Psychiatric: no motor/sensory deficits, alert, normal mood/affect, oriented x 3, power is 5/5 both on sides Skin: No normal color, No warm/dry, No cyanosis, No cool, No diaphoresis, No damp, No ecchymosis, No jaundice, No mottled, No pallor, No rash, No tattoos/ piercings, No ulcerations, No rash on exposed areas, No ulcerations on exposed areas, No other Data Review Labs Laboratory Tests 11/12/17 16:05: White Blood Count 9.1, Red Blood Count 4.47, Hemoglobin 14.3, Hematocrit 41, Mean Corpuscular Volume 92, Mean Corpuscular Hemoglobin 32, Mean Corpuscular Hemoglobin Concent 35, Red Cell Distribution Width 13.6, Platelet Count 211, Mean Platelet Volume 10.1, Neutrophils (%) (Auto) 55, Lymphocytes (%) (Auto) 32 , Monocytes (%) (Auto) 12, Eosinophils (%) (Auto) 1, Basophils (%) (Auto) 0, Neutrophils # (Auto) 5.0, Lymphocytes # (Auto) 2.9, Monocytes # (Auto) 1.1H, Eosinophils # (Auto) 0.1, Basophils # (Auto) 0.0, Prothrombin Time 12.8, INR Comment 1.0, Activated Partial Thromboplast Time 41H, Sodium Level 138, Potassium Level 3.9, Chloride Level 105, Carbon Dioxide Level 22, Anion Gap 11, Blood Urea Nitrogen 10, Creatinine 0.83, Estimat Glomerular Filtration Rate > 60 , BUN/Creatinine Ratio 12, Glucose Level 89, Calcium Level 9.2, Magnesium Level 2.0, Total Bilirubin 0.6, Aspartate Amino Transf (AST/SGOT) 13, Alanine Aminotransferase (ALT/SGPT) 10, Alkaline Phosphatase 71, Myoglobin 40.2, Troponin I < 0.30, Total Protein 6.6, Albumin 4.0 11/12/17 23:11: Troponin I 1.59*H, C-Reactive Protein High Sensitivity 0.19 11/13/17 03:14: Sodium Level 138, Potassium Level 4.0, Chloride Level 108H, Carbon Dioxide Level 23, Anion Gap 7, Blood Urea Nitrogen 8, Creatinine 0.71, Estimat Glomerular Filtration Rate > 60, BUN/Creatinine Ratio 11, Glucose Level 103, Calcium Level 8.2L, Magnesium Level 1.9, Troponin I 9.34*H, B-Type Natriuretic Peptide 157.6H, Triglycerides Level 150H, Cholesterol Level 165, LDL Cholesterol Direct 105, VLDL Cholesterol 30, HDL Cholesterol 42, Thyroid Stimulating Hormone (TSH) 0.35 ECG Impression ECG Initial ECG Rhythm: S.Agustin A/P-Cardiology Assessment/Admission Diagnosis Dilated nonischemic cardiomyopathy, Significantly positive troponins, questionable acute PR, [id number] nonobstructive CAD, Sinus node dysfunction, sinus bradycardia, Nonsustained VT Plan Dilated nonischemic cardiomyopathy, LV ejection fraction was 30 percent yesterday on cardiac catheterization. Echocardiogram this morning shows an LVEF of 50 percent. Treat aggressively with beta jocelyn and DAMIÁN inhibitor. Significantly positive troponins, questionable acute PR, will defer to Dr. Yusuf. [id number] nonobstructive CAD, continue aspirin and statin. Sinus node dysfunction, sinus bradycardia, we'll start low-dose beta jocelyn which is needed for nonsustained VT and cardiomyopathy. If the patient is not able to tolerate beta blockers due to symptomatic sinus node dysfunction and he' ll be a candidate for a pacemaker. He will require a Holter monitor and event monitor on discharge. Nonsustained VT, monomorphic asymptomatic. We'll start low-dose beta jocelyn. Holter/event monitor. I spent 60 minutes talking to the patient and family and doing the H&P. All questions were explained in depth. Thank you for your consultation. Please call me if you have any questions. Stewart Munoz MD, FACP, FACC, FSCAI, FHRS, CCDS Interventional Cardiology Cardiac Electrophysiology Vascular Medicine and Endovascular Interventions Clinical Quality Measures DVT/VTE Risk/Contraindication: Risk Factor Score Per Nursin RFS Level Per Nursing on Admit: 3=High Sandy MUNOZ MD November 13, 2017 9:21 am
[2017-11-13] MEDS ORDERED: SPIRONOLACTONE 25 MG (ALDACTONE) TAB PO SCH (10:15)
[2017-11-13] MEDS ORDERED: SPIRONOLACTONE 25 MG (ALDACTONE) TAB ONE (10:31)
[2017-11-13] MEDS ORDERED: meTOprolol TARTRATE 25 MG (LOPRESSOR) TABLET ONE (10:32)
[2017-11-13] MEDS: meTOprolol TARTRATE 25 MG (LOPRESSOR) TABLET PO SCH ×2 (10:57→21:32)
--- NOTE | 2017-11-13 11:46 | History & Physical-Hospitalist ---
History of Present Illness HPI/Chief Complaint CC: Chest pain with NTSEMI HPI: This is a 67-year-old white male patient of Екатерина at [facility] with no past medical history except smoking who presents to the ER with shoulder pain and chest pressure was admitted for observation found to have elevated troponin of 9 requiring cardiac catheterization which revealed no critical stenosis so no intervention was initiated but upon further assessment which showed ejection fraction of 30 percent. He reports he hasn't had any shortness of breath doesn't wear oxygen at home or inhalers and smoking cessation was counseled in depth today. We're in the process of waiting [employer] insurance approval along with fitting and beta jocelyn was initiated and will monitor on telemetry through the night and discharge tomorrow. Source: patient, RN/MD Exam Limitations: no limitations Date Seen 11/13/17 Time Seen by Provider: 10:30 Attending Physician Hanna Covarrubias DO [facility] Referring Physician Date of Admission November 13, 2017 at 08:14 Home Medications & Allergies Home Medications Reviewed patient Home Medication Reconciliation performed by pharmacy medication reconciliations sterilisation technician and/or nursing. Patients Allergies have been reviewed. Allergies Allergies Coded Allergies Sulfa (Sulfonamide Antibiotics) (Unverified Adverse Reaction, Mild, 11/12/17) pt states sulfa gives him a "sore tongue" Past [id number]-Munqcb Hx Past Med/Social Hx: Reviewed Nursing Past Med/Soc Hx, Reviewed and Corrections made (Material Loader) Patient Social History Marrital Status: Employed/Student: employed Alcohol Use: Denies Use Recreational Drug Use: No Smoking Status: Current Everyday Smoker Type Used: Cigarettes 2nd Hand Smoke Exposure: Yes Physical Abuse Screen: No Sexual Abuse: No Recent Foreign Travel: No Contact w/other who traveled: No Recent Hopitalizations: No Recent Infectious Disease Expo: No Immunizations Up To Date Pediatric: No Seasonal Allergies Seasonal Allergies: No Past Medical History Surgeries: Abdominal (1 yo instestine mass with 20cm resection) Currently Using CPAP: No Currently Using BIPAP: No Sexually Transmitted Disease: No HIV/AIDS: No Gastrointestinal: Abdominal Hernia Are Your Blood Sugars Over 250: No History of Blood Disorders: No Adverse Reaction to Blood Veras: No Family History Anxiety disorder G8 SISTER Arthritis 19 MOTHER FH: atrial fibrillation G8 SISTER FH: breast cancer in first degree relative G8 SISTER Hypertension, Vascular Disease (brain aneurysm) Review of Systems Constitutional: see HPI EENTM: no symptoms reported Respiratory: short of breath Cardiovascular: chest pain Gastrointestinal: no symptoms reported Genitourinary: no symptoms reported Musculoskeletal: joint pain (shoulders) Skin: see HPI Psychiatric/Neurological: No Symptoms Reported All Other Systems Reviewed Negative Unless Noted: Yes Physical Exam Physical Exam Vital Signs Vital Signs - First Documented 11/12/17 11/12/17 15:59 19:37 Temp 96.5 Pulse 48 Resp 20 B/P (MAP) 109/64 (79) Pulse Ox 94 O2 Delivery Room Air O2 Flow Rate 2.00 Capillary Refill : Less Than 3 Seconds General Appearance: No Apparent Distress, WD/WN, Chronically ill Eyes: Bilateral Eye Normal Inspection, Bilateral Eye PERRL HEENT: PERRL/EOMI, Normal ENT Inspection, Pharynx Normal Neck: Full Range of Motion, Normal Inspection, Non Tender, Supple, Carotid Bruit Respiratory: Chest Non Tender, Lungs Clear, Normal Breath Sounds, No Accessory Muscle Use, No Respiratory Distress Cardiovascular: Regular Rate, Rhythm, No Edema, No Gallop, No JVD, No Murmur, Normal Peripheral Pulses Gastrointestinal: Normal Bowel Sounds, No Organomegaly, No Pulsatile Mass, Non Tender, Soft Back: Normal Inspection, No CVA Tenderness, No Vertebral Tenderness Extremity: Normal Capillary Refill, Normal Inspection, Normal Range of Motion, Non Tender, No Calf Tenderness, No Pedal Edema Neurologic/Psychiatric: Alert, Oriented x3, No Motor/Sensory Deficits, Normal Mood/Affect Skin: Normal Color, Warm/Dry Lymphatic: No Adenopathy Results Results/Procedures Labs Laboratory Tests 11/12/17 16:05 11/13/17 03:14 Patient resulted labs reviewed. Assessment/Plan Admission Diagnosis Chest pain with NSTEMI Plan: [employer] BB Smoking cessation Admission Status: Inpatient Order (span 2 midnights) Reason for Inpatient Admission: NSTEMI acute Diagnosis/Problems Diagnosis/Problems (1) Non-ST elevated myocardial infarction Status: Acute (2) Cardiomyopathy Status: Acute Qualifiers: Cardiomyopathy type: ischemic Qualified Codes: I25.5 - Ischemic cardiomyopathy (3) Smoker Status: Chronic (4) Bradycardia Status: Acute Clinical Quality Measures DVT/VTE Risk/Contraindication: Risk Factor Score Per Nursin RFS Level Per Nursing on Admit: 3=High HANNA COVARRUBIAS DO November 13, 2017 11:46
--- NOTE | 2017-11-13 12:50 | Cardiology Progress Note ---
Subjective Date Seen by Provider: November 13, 2017 Time Seen by Provider: 12:47 Subjective/Events-last exam Patient is laying down in bed, feeling better at this time, denied any chest pain, no shortness of breath, having right shoulder pain which has been chronic. Review of Systems General: No Chills, No Night Sweats, No Fatigue, No Malaise, No Appetite, No Other HEENT: No Head Aches, No Visual Changes, No Eye Pain, No Ear Pain, No Dysphasia , No Sinus Congestion, No Post Nasal Drip, No Sore Throat, No Other Pulmonary: No Dyspnea, No Cough, No Pleuritic Chest Pain, No Other Cardiovascular: No: Chest Pain, Palpitations, Orthopnea, Paroxysmal Noc. Dyspnea, Edema, Lt Headedness, Other Objective-Cardiology Exam Last Set of Vital Signs Vital Signs 11/13/17 11/13/17 11/13/17 10:01 11:00 12:00 Temp 97.1 Pulse 67 Resp 11 B/P (MAP) 135/78 (97) Pulse Ox 94 O2 Delivery Room Air O2 Flow Rate 2.00 Capillary Refill : Less Than 3 Seconds I&O Intake and Output 11/13/17 00:00 Intake Total 75 ml Output Total 250 ml Balance -175 ml Intake Oral 75 ml Output Urine Total 250 ml Daily Weight Change No General: Alert, Oriented X3, Cooperative HEENT: Atraumatic, PERRLA Neck: Supple, No JVD, No Thyromegaly Lungs: Clear to Auscultation, Normal Air Movement Heart: Regular Rate, Normal S1, Normal S2, No Murmurs Abdomen: Normal Bowel Sounds, Soft, No Tenderness, No Hepatosplenomegaly, No Masses Extremities: No Clubbing, No Cyanosis, No Edema, Normal Pulses, No Tenderness/ Swelling Skin: No Rashes, No Breakdown, No Significant Lesion Neuro: Normal Gait, Normal Speech, Strength at 5/5 X4 Ext, Normal Tone, Sensation Intact Psych/Mental Status: Mental Status NL, Mood NL Results Lab Laboratory Tests 11/12/17 16:05 11/13/17 03:14 A/P-Cardiology Admission Diagnosis Chest pain, unstable angina Sick sinus syndrome Syncope Hypertension Assessment/Plan Chest pain, unstable angina/non-ST elevation of cardiac infarction with elevated troponin level. Cardiac catheterization showed [id number] coronary artery disease nonobstructive disease. There is questionable thrombus in the LAD as a cause for his troponin elevation that was dissolved after receiving heparin and aspirin prior to the cardiac catheterization. There were no acute EKG changes suggestive of ST elevation TN. There was anterior wall hypokinesia and apical hypokinesia noted with elevated troponin. Currently feeling better. Continue on aspirin and monitor Congestive heart failure, acute left ventricular systolic dysfunction, probably ischemic in nature due to segmental wall motion abnormal and elevated troponin in addition repeat echocardiogram today showed resolution of the heart failure and improvement in contractility, subtle hypokinesia at the apex with ejection fraction 50-55 percent. Status post nonsustained ventricular tachycardia occurred at 455 a.m., asymptomatic. No further episodes were noted I will continue monitoring his telemetry at this time, Dr. Munoz was consulted Syncope, hypotensive episode after sublingual nitroglycerin, recovered, feeling better at this time. Continue to monitor Sick sinus syndrome, bradycardia, patient is reporting that he has history of bradycardia and has been asymptomatic with it. I will continue monitoring for now. May require pacemaker Tobaccoism, patient is an active smoker. Discussed smoking cessation. Mild epigastric pain. CT scan was negative. Continue to monitor Hypertension, monitor blood pressure, cannot take beta blockers at this time. Mild hyperlipidemia, LDL 105, total cholesterol 165, triglyceride 150. 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 Will be followed and managed by primary care physician Clinical Quality Measures DVT/VTE Risk/Contraindication: Risk Factor Score Per Nursin RFS Level Per Nursing on Admit: 3=High LIZETT PÉREZ MD November 13, 2017 12:50
[2017-11-13] MEDS: OMEGA 3 (FISH OIL) 1000 MG CAP PO SCH (16:55)
[2017-11-13] MEDS: ATORVASTATIN 10 MG (LIPITOR) TABLET PO SCH (21:32)
[2017-11-14] VITALS (18 sets, daily range): BP systolic 111–142; BP diastolic 56–94
[2017-11-14] MEDS: NS IV 1000 ML 1,000 ML IV SCH ×3 (00:06→22:55)
[2017-11-14] MEDS: CATHETER FLUSH 10 ML SYR IV SCH ×3 (01:34→23:01)
[2017-11-14 06:44] LABS: HEMOGLOBIN 12.7 G/DL (13.3-17.7); RED BLOOD COUNT 3.98 10^6/uL (4.35-5.85); RED CELL DISTRIBUTION WIDTH 13.9 % (10.0-14.5); WHITE BLOOD COUNT 7.4 10^3/uL (4.3-11.0)
[2017-11-14 07:03] LABS: BUN/CREATININE RATIO 11; CALCIUM 8.3 MG/DL (8.5-10.1); CARBON DIOXIDE 24 MMOL/L (21-32); CHLORIDE 111 MMOL/L (98-107); CREATININE SERUM 0.75 MG/DL (0.60-1.30); GFR ESTIMATED > 60; GLUCOSE 92 MG/DL (70-105); POTASSIUM 4.1 MMOL/L (3.6-5.0); SODIUM 141 MMOL/L (135-145)
--- NOTE | 2017-11-14 07:25 | Cardiology Progress Note ---
Subjective Date Seen by Provider: November 14, 2017 Time Seen by Provider: 07:18 Subjective/Events-last exam Patient is in bed feeling well, denied any chest pain or shortness of breath Review of Systems General: No Chills, No Night Sweats, No Fatigue, No Malaise, No Appetite, No Other HEENT: No Head Aches, No Visual Changes, No Eye Pain, No Ear Pain, No Dysphasia , No Sinus Congestion, No Post Nasal Drip, No Sore Throat, No Other Pulmonary: No Dyspnea, No Cough, No Pleuritic Chest Pain, No Other Cardiovascular: No: Chest Pain, Palpitations, Orthopnea, Paroxysmal Noc. Dyspnea, Edema, Lt Headedness, Other Objective-Cardiology Exam Last Set of Vital Signs Vital Signs 11/13/17 11/13/17 11/14/17 10:01 19:33 06:00 Temp 99.2 Pulse 50 Resp 20 B/P (MAP) 132/69 (90) Pulse Ox 92 O2 Delivery Room Air O2 Flow Rate 2.00 Capillary Refill : Less Than 3 Seconds I&O Intake and Output 11/14/17 00:00 Intake Total 2875 ml Output Total 2750 ml Balance 125 ml Intake Oral 875 ml IV Total 2000 ml Output Urine Total 2750 ml General: Alert, Oriented X3, Cooperative HEENT: Atraumatic, PERRLA Neck: Supple, No JVD, No Thyromegaly Lungs: Clear to Auscultation, Normal Air Movement Heart: Regular Rate, Normal S1, Normal S2, No Murmurs Abdomen: Normal Bowel Sounds, Soft, No Tenderness, No Hepatosplenomegaly, No Masses Extremities: No Clubbing, No Cyanosis, No Edema, Normal Pulses, No Tenderness/ Swelling Skin: No Rashes, No Breakdown, No Significant Lesion Neuro: Normal Gait, Normal Speech, Strength at 5/5 X4 Ext, Normal Tone, Sensation Intact Psych/Mental Status: Mental Status NL, Mood NL Results Lab Laboratory Tests 11/14/17 06:37 A/P-Cardiology Admission Diagnosis Chest pain, unstable angina Sick sinus syndrome Syncope Hypertension Assessment/Plan Chest pain, unstable angina/non-ST elevation of cardiac infarction with elevated troponin level. Cardiac catheterization showed [id number] coronary artery disease nonobstructive disease with slow flow secondary to small vessels disease. There is questionable thrombus in the LAD as a cause for his troponin elevation that was dissolved after receiving heparin and aspirin prior to the cardiac catheterization. There were no acute EKG changes suggestive of ST elevation ND. There was anterior wall hypokinesia and apical hypokinesia noted with elevated troponin. Currently feeling better. Continue on aspirin and statin Congestive heart failure, acute left ventricular systolic dysfunction, probably ischemic in nature due to segmental wall motion abnormal and elevated troponin, repeat echocardiogram showed improvement of the left ventricular function EF 50 -55%, started on BB and ACEI, continue to monitor response Status post nonsustained ventricular tachycardia, asymptomatic. No further episodes were noted, Dr. Munoz was consulted, recommendation to use BB cautiously and monitor heart rate Syncope, hypotensive episode after sublingual nitroglycerin, recovered, feeling better at this time. Continue to monitor Sick sinus syndrome, bradycardia, patient is reporting that he has history of bradycardia and has been asymptomatic with it. Tolerating Lopressor at this time Tobaccoism, patient is an active smoker. Discussed smoking cessation. Mild epigastric pain. CT scan was negative. Continue to monitor Hypertension, monitor blood pressure, cannot take beta blockers at this time. Mild hyperlipidemia, LDL 105, total cholesterol 165, triglyceride 150. 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 Will be followed and managed by primary care physician DVT prophylaxis with Lovenox Clinical Quality Measures DVT/VTE Risk/Contraindication: Risk Factor Score Per Nursin RFS Level Per Nursing on Admit: 3=High LIZETT PÉREZ MD November 14, 2017 7:25 am
[2017-11-14] MEDS: lisINopril 5 MG (PRINIVIL) TABLET PO SCH (08:42)
[2017-11-14] MEDS: meTOprolol TARTRATE 25 MG (LOPRESSOR) TABLET PO SCH ×3 (08:43→21:06)
[2017-11-14] MEDS: ASPIRIN E.C. 81 MG (ECOTRIN) TAB PO SCH (08:43)
[2017-11-14] MEDS: ENOXAPARIN 40 MG/0.4 ML (LOVENOX) SYR SQ SCH (08:43)
[2017-11-14] MEDS: OMEGA 3 (FISH OIL) 1000 MG CAP PO SCH ×2 (08:43→17:56)
--- NOTE | 2017-11-14 09:25 | Progress Note-Hospitalist ---
Subjective HPI/CC On Admission Date Seen by Provider: November 14, 2017 Time Seen by Provider: 09:00 CC: Chest pain with NTSEMI HPI: This is a 67-year-old white male patient of Екатерина at [facility] with no past medical history except smoking who presents to the ER with shoulder pain and chest pressure was admitted for observation found to have elevated troponin of 9 requiring cardiac catheterization which revealed no critical stenosis so no intervention was initiated but upon further assessment which showed ejection fraction of 30 percent. He reports he hasn't had any shortness of breath doesn't wear oxygen at home or inhalers and smoking cessation was counseled in depth today. We're in the process of waiting [employer]Vest insurance approval along with fitting and beta jocelyn was initiated and will monitor on telemetry through the night and discharge tomorrow. Subjective/Events-last exam Patient doing well overall and was prepared to go home but repeat echocardiogram revealed ejection fraction was already up to 50% up from 25% so LifeVest was no longer needed but Dr. Yusuf repeated labs revealing more elevated troponin at 11 and elevated BNP at 400. The plan will be to wait until tomorrow for discharge Check meds and labs once some options for smoking cessation since now the patient is unsure that he will be able to stop smoking which will be required to have any chance of cardiac recovery Review of Systems Musculoskeletal: arm pain Objective Exam Vital Signs Vital Signs Date Time Temp Pulse Resp B/P (MAP) Pulse Ox O2 Delivery O2 Flow Rate FiO2 11/14/17 20:53 58 20 130/63 (85) 94 Room Air 11/14/17 20:02 97.6 11/14/17 16:00 2.00 Capillary Refill : Less Than 3 Seconds General Appearance: No Apparent Distress, WD/WN, Chronically ill Neck: Normal Inspection Respiratory: Lungs Clear, Normal Breath Sounds Cardiovascular: Regular Rate, Rhythm, No Edema Neurologic/Psychiatric: Alert, Oriented x3, No Motor/Sensory Deficits, Normal Mood/Affect, development executive II-XII Norm as Tested Results/Procedures Lab Laboratory Tests 11/14/17 06:37 Patient resulted labs reviewed. Assessment/Plan Assessment and Plan Assess & Plan/Chief Complaint Assessment: Non-ST elevation [place] with severely depressed systolic function at 25% now recovered at 50% no longer needs LifeVest defibrillator More elevated troponin today Elevated BNP more elevated today Current smoker having difficulty with cessation Plan: Monitor creatinine and troponin and BNP Monitor telemetry Smoking cessation education Diagnosis/Problems Diagnosis/Problems (1) Non-ST elevated myocardial infarction Status: Acute (2) Cardiomyopathy Status: Acute Qualifiers: Cardiomyopathy type: ischemic Qualified Codes: I25.5 - Ischemic cardiomyopathy (3) Smoker Status: Chronic (4) Bradycardia Status: Acute Clinical Quality Measures DVT/VTE Risk/Contraindication: Risk Factor Score Per Nursin RFS Level Per Nursing on Admit: 3=High MAURILIO ESTEBAN DO November 14, 2017 09:25
--- NOTE | 2017-11-14 12:52 | Cardiology Progress Note ---
Cardiology SOAP Progress Note Subjective: No chest pain. Objective: I&O/Vital Signs 11/14/17 11/14/17 11/14/17 11/14/17 01:00 01:00 02:00 03:00 Pulse 44 44 46 50 Resp 26 18 14 B/P (MAP) 114/69 (84) 113/60 (77) 118/67 (84) Pulse Ox 91 90 91 O2 Delivery Room Air Room Air Room Air 11/14/17 11/14/17 11/14/17 11/14/17 04:00 04:00 05:00 06:00 Pulse 46 47 50 Resp 18 17 20 B/P (MAP) 111/94 (100) 124/70 (88) 132/69 (90) Pulse Ox 92 91 92 O2 Delivery Room Air Room Air Room Air Room Air 11/14/17 11/14/17 11/14/17 11/14/17 07:00 07:00 08:00 08:00 Temp 98.0 Pulse 50 53 52 Resp 13 18 B/P (MAP) 128/71 (90) 138/66 (90) Pulse Ox 92 94 O2 Delivery Room Air Room Air Room Air 11/14/17 11/14/17 11/14/17 11/14/17 08:46 09:00 10:00 11:00 Pulse 56 48 48 Resp 14 12 18 B/P (MAP) 128/74 (92) 129/72 (91) 139/75 (96) Pulse Ox 95 94 95 O2 Delivery Room Air Room Air Room Air Room Air 11/14/17 11/14/17 11:12 12:00 Pulse 49 Resp 8 B/P (MAP) 142/76 (98) Pulse Ox 95 O2 Delivery Room Air Room Air 11/14/17 00:00 Intake Total 1440 ml Output Total 1800 ml Balance -360 ml Weight (Pounds): 164 Weight (Ounces): 1.0 Weight (Calculated Kilograms): 74.009812 Constitutional: appears stated age, AAO x 3; No apparent distress; well- developed, well-nourished Respiratory: No accessory muscle use, No respiratory distress, No chest tender , No chest expansion is symmetric; chest is bilaterally symmetric; No lungs clear to percussion; lungs clear to auscultation; No crackles, No rhonchi, No rales, No stridor, No wheezing, No pleural rub, No other Cardiovascular: regular rate-rhythm; No irregularly irregular, No extra beats, No parasternal heave is noted, No JVD, No edema, No bradycardia, No tachycardia , No point of maximal impulse, No cardiac thrills are palpable; S1 and S2; No gallop/S3, No gallop/S4, No diastolic murmur, No systolic murmur, No friction rub, No click, No other Gastrointestional: No tender, No soft, No round, No distended, No pulsatile mass, No organomegaly, No guarding, No rebound, No tenderness, No hernia, No mass, No audible bowel sounds, No abnormal bowel sounds, No abdominal bruits, No spleenomegaly, No other Extremities: No normal range of motion, No non-tender, No normal inspection, No pedal edema, No calf tenderness, No normal capillary refill, No pelvis stable , No calf tenderness, No inflammation, No pedal edema, No slow capillary refill , No swelling, No other, No abrasion, No clubbing, No cyanosis, No ecchymosis, No laceration, No no lower extremity edema bilateral, No significant edema, No tenderness, No wound Neurologic/Psychiatric: no motor/sensory deficits, alert, normal mood/affect, oriented x 3, power is 5/5 both on sides Skin: No normal color, No warm/dry, No cyanosis, No cool, No diaphoresis, No damp, No ecchymosis, No jaundice, No mottled, No pallor, No rash, No tattoos/ piercings, No ulcerations, No rash on exposed areas, No ulcerations on exposed areas, No other Results/Procedures: Labs Laboratory Tests 11/14/17 06:37: White Blood Count 7.4, Red Blood Count 3.98L, Hemoglobin 12.7L, Hematocrit 37L, Mean Corpuscular Volume 94, Mean Corpuscular Hemoglobin 32, Mean Corpuscular Hemoglobin Concent 34, Red Cell Distribution Width 13.9, Platelet Count 166, Mean Platelet Volume 10.0, Sodium Level 141, Potassium Level 4.1, Chloride Level 111H, Carbon Dioxide Level 24, Anion Gap 6, Blood Urea Nitrogen 8, Creatinine 0.75, Estimat Glomerular Filtration Rate > 60, BUN/Creatinine Ratio 11, Glucose Level 92, Calcium Level 8.3L, Troponin I 11.37*H, B-Type Natriuretic Peptide 400.9H A/P: Assessment/Dx: Dilated nonischemic cardiomyopathy, Significantly positive troponins, questionable acute NV, [id number] nonobstructive CAD, Sinus node dysfunction, sinus bradycardia, Nonsustained VT Plan: Dilated nonischemic cardiomyopathy, LV ejection fraction was 30 percent on cardiac catheterization. Echocardiogram after 24 hours shows an LVEF of 50 percent. Treat aggressively with beta jocelyn and DAMIÁN inhibitor. Significantly positive troponins, questionable acute NV, will defer to Dr. Yusuf. [id number] nonobstructive CAD, continue aspirin and statin. Sinus node dysfunction, sinus bradycardia, we'll start low-dose beta jocelyn which is needed for nonsustained VT and cardiomyopathy. We started at Lopressor 25 twice a day. Patient's heart rate was in the 40s. I will increase to 25 3 times a day and see the patient's response. If the patient is not able to tolerate beta blockers due to symptomatic sinus node dysfunction and he'll be a candidate for a pacemaker. He will require a Holter monitor and event monitor on discharge. Nonsustained VT, monomorphic asymptomatic. We'll start low-dose beta jocelyn. Holter/event monitor. Thank you for your consultation. Please call me if you have any questions. Stewart Munoz MD, FACP, FACC, FSCAI, FHRS, CCDS Interventional Cardiology Cardiac Electrophysiology Vascular Medicine and Endovascular Interventions Sandy MUNOZ MD November 14, 2017 12:52 pm
[2017-11-14 15:03] LABS: MYOGLOBIN SERUM 31.6 NG/ML (10.0-92.0)
[2017-11-14] MEDS: ATORVASTATIN 10 MG (LIPITOR) TABLET PO SCH (21:06)
[2017-11-15 03:56] VITALS: BP 116/78
[2017-11-15] MEDS: OMEGA 3 (FISH OIL) 1000 MG CAP PO SCH (06:34)
[2017-11-15] MEDS: CATHETER FLUSH 10 ML SYR IV SCH (06:34)
[2017-11-15 06:53] LABS: MYOGLOBIN SERUM 28.2 NG/ML (10.0-92.0)
[2017-11-15 07:55] VITALS: BP 120/63
[2017-11-15] MEDS: ENOXAPARIN 40 MG/0.4 ML (LOVENOX) SYR SQ SCH (08:57)
[2017-11-15] MEDS: lisINopril 5 MG (PRINIVIL) TABLET PO SCH (08:57)
[2017-11-15] MEDS: meTOprolol TARTRATE 25 MG (LOPRESSOR) TABLET PO SCH (08:57)
[2017-11-15] MEDS: ASPIRIN E.C. 81 MG (ECOTRIN) TAB PO SCH (08:57)
[2017-11-15] MEDS ORDERED: ATOR10TA66 PO (09:16)
[2017-11-15] MEDS ORDERED: LISI-556 PO (09:16)
[2017-11-15] MEDS ORDERED: ASPI-983 PO (09:16)
[2017-11-15] MEDS ORDERED: METO-333 PO ×2 (09:16→10:40)
[2017-11-15] MEDS ORDERED: OMG1KC PO (09:16)
--- NOTE | 2017-11-15 09:17 | Discharge Inst-Post CATH ---
Discharge Inst-CATH Post Cardiac Cath D/C Inst Follow Up/Plan Appointment with Dr. Yusuf's office in one to 2 weeks CARDIAC CATH DISCHARGE INSTRUCTIONS *Hold Metformin for 48 hours post heart cath. ACTIVITY * Go Home directly and rest. * Limit activity of the leg (or wrist if it was used) for 7 days including aerobics, swimming, jogging, bicycling, etc. * Restrict stair-climbing for 7 days if possible, if not, climb up with your non -cath leg, then bring together on the same step. * Avoid lifting, pushing, pulling or excessive movement of the affected extremity for 7 days. * Customary sexual activity may be resumed after 2 days-use caution not to use a position that strains or causes pain to the affected extremity. * No driving for 24 hours. * NO SMOKING. * Avoid straining for bowel movements for 7 days. * Gentle walking on level ground is allowed. * Returning to work will depend on the type of procedure and the results. Your doctor will discuss this with you. CALL YOUR DOCTOR FOR ANY OF THE FOLLOWING: *If bleeding from the puncture site occurs- Apply gentle pressure to site with clean cloth and call your doctor or EMS. * If a knot or lump forms under the skin, increases in size, or causes pain. * If bruising appears to be worsening or moving further down your leg instead of disappearing. * Temperature above 101 F. CARE OF YOUR GROIN INCISION; * Bruising or purple discoloration of the skin near the puncture site is common. * You may shower only, no bathtub bathing for 5 days. Be careful to avoid slipping as your leg may feel stiff. * If a closure device was used on your femoral artery, please see the attached guide regarding care of the device and your leg. * REMOVE the dressing from your groin the next day after your procedure in the shower. CARE OF YOUR WRIST INCISION; * Bruising or purple discoloration of the skin near the puncture site is common. * You may shower. * DO NOT submerge wrist. * Remove dressing in 24 hours. LIZETT YUSUF MD November 15, 2017 09:17
--- NOTE | 2017-11-15 10:02 | Discharge Summary-Hospitalist ---
Diagnosis/Chief Complaint Date of Admission November 13, 2017 at 08:14 Date of Discharge Discharge Date: November 15, 2017 Admission Diagnosis Chest pain with NSTEMI Plan: Lifevest BB Smoking cessation Discharge Diagnosis Assessment: Non-ST elevation SC with severely depressed systolic function at 25% now recovered at 50% no longer needs LifeVest defibrillator More elevated troponin today Elevated BNP more elevated today Current smoker having difficulty with cessation Plan: Monitor creatinine and troponin and BNP Monitor telemetry Smoking cessation education (1) Non-ST elevated myocardial infarction Status: Acute (2) Cardiomyopathy Status: Acute (3) Smoker Status: Chronic (4) Bradycardia Status: Acute Discharge Summary Discharge Physical Exam Allergies: Coded Allergies: Sulfa (Sulfonamide Antibiotics) (Unverified Adverse Reaction, Mild, 11/12/17 ) pt states sulfa gives him a "sore tongue" Vitals & I&Os Vital Signs Date Time Temp Pulse Resp B/P (MAP) Pulse Ox O2 Delivery O2 Flow Rate FiO2 11/15/17 09:05 Room Air 11/15/17 08:55 69 11/15/17 07:55 96.9 18 120/63 (82) 93 11/14/17 16:00 2.00 General Appearance: Alert, Oriented X3, Cooperative Respiratory: Clear to Auscultation, Normal Air Movement Cardiovascular: Regular Rate, Normal S1, Normal S2 Psych/Mental Status: Mental Status NL, Mood NL Hospital Course Hospital course: Patient had an uneventful hospital course after he was admitted for observation is taken to the catheterization lab due to elevated troponin showing no evidence of any need for intervention ejection fraction had decreased to 25 percent requiring life vest fitting and arrangements. He did have a repeat echocardiogram that revealed 50 percent ejection fraction so LifeVest was no longer needed but elevated troponin and elevated BNP ensued along with bradycardia requiring an additional day of monitoring on telemetry that he was doing well was asymptomatic and cardiology agreed for discharge home with close follow-up on Saturday with Dr. Yusuf and close follow[facility]. Smoking cessation counseled. Labs (last 24 hrs) Laboratory Tests 11/14/17 14:30: Myoglobin 31.6, Troponin I 9.48*H 11/15/17 05:38: Myoglobin 28.2, Troponin I 6.72*H Patient resulted labs reviewed. Pending Labs Laboratory Tests 11/15/17 05:38: Myoglobin 28.2, Troponin I 6.72 Discussion & Recommendations Discharge Planning: <30 minutes discharge planning Discharge Home Medications: Active Scripts Active Metoprolol Tartrate 25 Mg Tablet 25 Mg PO TID 30 Days Aspirin EC (Aspirin) 81 Mg Tablet.dr 81 Mg PO DAILY Lisinopril 5 Mg Tablet 5 Mg PO DAILY Fish Oil 1,000 mg Capsule (Malone 3 Polyunsat Fatty Acids) 1,000 Mg Cap 1,000 Mg PO BID WITH MEALS Atorvastatin Calcium 10 Mg Tablet 10 Mg PO HS Instructions to patient/family Please see electronic discharge instructions given to patient. Clinical Quality Measures DVT/VTE Risk/Contraindication: Risk Factor Score Per Nursin RFS Level Per Nursing on Admit: 3=High Problem Qualifiers (1) Cardiomyopathy: Cardiomyopathy type: ischemic Qualified Codes: I25.5 - Ischemic cardiomyopathy MAURILIO ESTEBAN DO November 15, 2017 10:02
--- NOTE | 2017-11-15 10:43 | Cardiology Progress Note ---
Cardiology SOAP Progress Note Subjective: No Cardiac symptoms. Objective: I&O/Vital Signs 11/14/17 11/15/17 11/15/17 11/15/17 23:54 00:00 01:00 03:56 Temp 97.0 96.9 Pulse 51 63 54 Resp 17 18 B/P (MAP) 130/63 (85) 116/78 (91) Pulse Ox 93 93 O2 Delivery Room Air Room Air Room Air 11/15/17 11/15/17 11/15/17 11/15/17 04:00 07:55 08:55 09:05 Temp 96.9 Pulse 48 69 Resp 18 B/P (MAP) 120/63 (82) Pulse Ox 93 O2 Delivery Room Air Room Air Room Air 11/15/17 00:00 Intake Total 900 ml Output Total 1775 ml Balance -875 ml Weight (Pounds): 163 Weight (Ounces): 6.4 Weight (Calculated Kilograms): 74.798690 Constitutional: appears stated age, AAO x 3; No apparent distress; well- developed, well-nourished Respiratory: No accessory muscle use, No respiratory distress, No chest tender , No chest expansion is symmetric; chest is bilaterally symmetric; No lungs clear to percussion; lungs clear to auscultation; No crackles, No rhonchi, No rales, No stridor, No wheezing, No pleural rub, No other Cardiovascular: regular rate-rhythm; No irregularly irregular, No extra beats, No parasternal heave is noted, No JVD, No edema, No bradycardia, No tachycardia , No point of maximal impulse, No cardiac thrills are palpable; S1 and S2; No gallop/S3, No gallop/S4, No diastolic murmur, No systolic murmur, No friction rub, No click, No other Gastrointestional: No tender, No soft, No round, No distended, No pulsatile mass, No organomegaly, No guarding, No rebound, No tenderness, No hernia, No mass, No audible bowel sounds, No abnormal bowel sounds, No abdominal bruits, No spleenomegaly, No other Extremities: No normal range of motion, No non-tender, No normal inspection, No pedal edema, No calf tenderness, No normal capillary refill, No pelvis stable , No calf tenderness, No inflammation, No pedal edema, No slow capillary refill , No swelling, No other, No abrasion, No clubbing, No cyanosis, No ecchymosis, No laceration, No no lower extremity edema bilateral, No significant edema, No tenderness, No wound Neurologic/Psychiatric: no motor/sensory deficits, alert, normal mood/affect, oriented x 3, power is 5/5 both on sides Skin: No normal color, No warm/dry, No cyanosis, No cool, No diaphoresis, No damp, No ecchymosis, No jaundice, No mottled, No pallor, No rash, No tattoos/ piercings, No ulcerations, No rash on exposed areas, No ulcerations on exposed areas, No other Results/Procedures: Labs Laboratory Tests 11/14/17 14:30: Myoglobin 31.6, Troponin I 9.48*H 11/15/17 05:38: Myoglobin 28.2, Troponin I 6.72*H A/P: Assessment/Dx: Dilated nonischemic cardiomyopathy, Significantly positive troponins, questionable acute MN, [id number] nonobstructive CAD, Sinus node dysfunction, sinus bradycardia, Nonsustained VT Plan: Dilated nonischemic cardiomyopathy, LV ejection fraction was 30 percent on cardiac catheterization. Echocardiogram after 24 hours shows an LVEF of 50 percent. Treat aggressively with beta jocelyn and DAMIÁN inhibitor. Significantly positive troponins, questionable acute MN, will defer to Dr. Yusuf. [id number] nonobstructive CAD, continue aspirin and statin. Sinus node dysfunction, sinus bradycardia, we'll start low-dose beta jocelyn which is needed for nonsustained VT and cardiomyopathy. He will continue on Lopressor 25 mg 3 times a day and will be discharged on it. This morning his heart rate was 60 BPM therefore he is tolerating it well. If the patient is not able to tolerate beta blockers due to symptomatic sinus node dysfunction and he'll be a candidate for a pacemaker. He will require a Holter monitor and event monitor on discharge. Nonsustained VT, monomorphic asymptomatic. We'll start low-dose beta jocelyn. Holter/event monitor. EP follow-up with me next week. Discussed with the patient. Thank you for your consultation. Please call me if you have any questions. Stewart Munoz MD, FACP, FACC, FSCAI, FHRS, CCDS Interventional Cardiology Cardiac Electrophysiology Vascular Medicine and Endovascular Interventions Sandy MUNOZ MD November 15, 2017 10:43
--- OUTSIDE RECORDS SUMMARY | 2017-11-21 11:02 | XMS REPORT | Continuity of Care Document ---
Author Author [facility] Ctr of [facility] Ctr [facility] Address Unknown Phone Unavailable Allergies Active Description Code Type Severity Reaction Onset Reported/Identified Relationship to Patient Clinical Status Yes Sulfa (Sulfonamide Antibiotics) [id number] Drug Allergy Mild N/A 2017 Medications There is no data. Problems Date Dx Coded Attending Type Code Diagnosis Diagnosed By 06/12/2013 RHONDA STEVENSON DO V06.1 TDAP DX 11/14/2017 MAURILIO ESTEBAN DO Ot E27.9 DISORDER OF ADRENAL GLAND, UNSPECIFIED 11/14/2017 PASTOR ESTEBAN DOI Ot E78.5 HYPERLIPIDEMIA, UNSPECIFIED 11/14/2017 PASTOR ESTEBAN DOI Ot F17.210 NICOTINE DEPENDENCE, CIGARETTES, UNCOMPL 11/14/2017 CARLITO SORIANO MAURILIO Ot I10 ESSENTIAL (PRIMARY) HYPERTENSION 11/14/2017 CARLITO SORIANO MAURILIO Ot I11.0 HYPERTENSIVE HEART DISEASE WITH HEART FA 11/14/2017 CARLITO SORIANO MAURILIO Ot I21.4 NON-ST ELEVATION (NSTEMI) MYOCARDIAL INF 11/14/2017 CARLITO SORIANO MAURILIO Ot I25.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 11/14/2017 CARLITO SORIANO MAURILIO Ot I42.8 OTHER CARDIOMYOPATHIES 11/14/2017 CARLITO SORIANO MAURILIO Ot I49.3 VENTRICULAR PREMATURE DEPOLARIZATION 11/14/2017 CARLITO SORIANO MAURILIO Ot I49.5 SICK SINUS SYNDROME 11/14/2017 CARLITO SORIANO MAURILIO Ot I50.21 ACUTE SYSTOLIC (CONGESTIVE) HEART FAILUR 11/14/2017 CARLITO SORIANO MAURILIO Ot I70.8 ATHEROSCLEROSIS OF OTHER ARTERIES 11/14/2017 CARLITO SORIANO MAURILIO Ot I95.9 HYPOTENSION, UNSPECIFIED 11/14/2017 PASTOR ESTEBAN DOI Ot R00.1 BRADYCARDIA, UNSPECIFIED 11/14/2017 PASTOR ESTEBAN DOI Ot Z82.49 FAMILY HX OF [place] HEART DIS AND OTH DI 11/14/2017 ESTEBAN DO, MAURILIO Ot E27.9 DISORDER OF ADRENAL GLAND, UNSPECIFIED 11/14/2017 ESTEBAN DO, MAURILIO Ot E78.5 HYPERLIPIDEMIA, UNSPECIFIED 11/14/2017 ESTEBAN DO, MAURILIO Ot F17.210 NICOTINE DEPENDENCE, CIGARETTES, UNCOMPL 11/14/2017 ESTEBAN DO, MAURILIO Ot I10 ESSENTIAL (PRIMARY) HYPERTENSION 11/14/2017 ESTEBAN DO, MAURILIO Ot I11.0 HYPERTENSIVE HEART DISEASE WITH HEART FA 11/14/2017 ESTEBAN DO, MAURILIO Ot I21.4 NON-ST ELEVATION (NSTEMI) MYOCARDIAL INF 11/14/2017 ESTEBAN DO, MAURILIO Ot I25.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 11/14/2017 ESTEBAN DO, MAURILIO Ot I42.8 OTHER CARDIOMYOPATHIES 11/14/2017 ESTEBAN DO, MAURILIO Ot I49.3 VENTRICULAR PREMATURE DEPOLARIZATION 11/14/2017 ESTEBAN DO, MAURILIO Ot I49.5 SICK SINUS SYNDROME 11/14/2017 ESTEBAN DO, MAURILIO Ot I50.21 ACUTE SYSTOLIC (CONGESTIVE) HEART FAILUR 11/14/2017 ESTEBAN DO, MAURILIO Ot I70.8 ATHEROSCLEROSIS OF OTHER ARTERIES 11/14/2017 ESTEBAN DO, MAURILIO Ot I95.9 HYPOTENSION, UNSPECIFIED 11/14/2017 ESTEBAN DO, MAURILIO Ot R00.1 BRADYCARDIA, UNSPECIFIED 11/14/2017 ESTEBAN DO, MAURILIO Ot Z82.49 FAMILY HX OF ISCHEM HEART DIS AND OTH DI 11/14/2017 ESTEBAN DO, MAURILIO Ot E27.9 DISORDER OF ADRENAL GLAND, UNSPECIFIED 11/14/2017 ESTEBAN DO, MAURILIO Ot E78.5 HYPERLIPIDEMIA, UNSPECIFIED 11/14/2017 ESTEBAN DO, MAURILIO Ot F17.210 NICOTINE DEPENDENCE, CIGARETTES, UNCOMPL 11/14/2017 ESTEBAN DO, MAURILIO Ot I10 ESSENTIAL (PRIMARY) HYPERTENSION 11/14/2017 ESTEBAN DO, MAURILIO Ot I11.0 HYPERTENSIVE HEART DISEASE WITH HEART FA 11/14/2017 ESTEBAN DO, MAURILIO Ot I21.4 NON-ST ELEVATION (NSTEMI) MYOCARDIAL INF 11/14/2017 ESTEBAN DO, MAURILIO Ot I25.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 11/14/2017 ESTEBAN DO, MAURILIO Ot I42.8 OTHER CARDIOMYOPATHIES 11/14/2017 ESTEBAN DO, MAURILIO Ot I49.3 VENTRICULAR PREMATURE DEPOLARIZATION 11/14/2017 ESTEBAN DO, MAURILIO Ot I49.5 SICK SINUS SYNDROME 11/14/2017 ESTEBAN DO, MAURILIO Ot I50.21 ACUTE SYSTOLIC (CONGESTIVE) HEART FAILUR 11/14/2017 ESTEBAN DO, MAURILIO Ot I70.8 ATHEROSCLEROSIS OF OTHER ARTERIES 11/14/2017 ESTEBAN DO, MAURILIO Ot I95.9 HYPOTENSION, UNSPECIFIED 11/14/2017 ESTEBAN DO, MAURILIO Ot R00.1 BRADYCARDIA, UNSPECIFIED 11/14/2017 ESTEBAN DO, MAURILIO Ot Z82.49 FAMILY HX OF ISCHEM HEART DIS AND OTH DI 11/14/2017 ESTEBAN DO, MAURILIO Ot E27.9 DISORDER OF ADRENAL GLAND, UNSPECIFIED 11/14/2017 ESTEBAN DO, MAURILIO Ot E78.5 HYPERLIPIDEMIA, UNSPECIFIED 11/14/2017 ESTEBAN DO, MAURILIO Ot F17.210 NICOTINE DEPENDENCE, CIGARETTES, UNCOMPL 11/14/2017 ESTEBAN DO, MAURILIO Ot I10 ESSENTIAL (PRIMARY) HYPERTENSION 11/14/2017 ESTBEAN DO, MAURILIO Ot I11.0 HYPERTENSIVE HEART DISEASE WITH HEART FA 11/14/2017 ESTEBAN DO, MAURILIO Ot I21.4 NON-ST ELEVATION (NSTEMI) MYOCARDIAL INF 11/14/2017 ESTEBAN DO, MAURILIO Ot I25.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 11/14/2017 ESTEBAN DO, MAURILIO Ot I42.8 OTHER CARDIOMYOPATHIES 11/14/2017 ESTEBAN DO, MAURILIO Ot I49.3 VENTRICULAR PREMATURE DEPOLARIZATION 11/14/2017 ESTEBAN DO, MAURILIO Ot I49.5 SICK SINUS SYNDROME 11/14/2017 ESTEBAN DO, MAURILIO Ot I50.21 ACUTE SYSTOLIC (CONGESTIVE) HEART FAILUR 11/14/2017 ESTEBAN DO, MAURILIO Ot I70.8 ATHEROSCLEROSIS OF OTHER ARTERIES 11/14/2017 ESTEBAN DO, MAURILIO Ot I95.9 HYPOTENSION, UNSPECIFIED 11/14/2017 ESTEBAN DO, MAURILIO Ot R00.1 BRADYCARDIA, UNSPECIFIED 11/14/2017 ESTEBAN DO, MAURILIO Ot Z82.49 FAMILY HX OF ISCHEM HEART DIS AND OTH DI 11/15/2017 ESTEBAN DO, MAURILIO Ot E27.9 DISORDER OF ADRENAL GLAND, UNSPECIFIED 11/15/2017 ESTEBAN DO, MAURILIO Ot E78.5 HYPERLIPIDEMIA, UNSPECIFIED 11/15/2017 ESTEBAN DO, MAURILIO Ot F17.210 NICOTINE DEPENDENCE, CIGARETTES, UNCOMPL 11/15/2017 ESTEBAN DO, MAURILIO Ot I10 ESSENTIAL (PRIMARY) HYPERTENSION 11/15/2017 ESTEBAN DO, MAURILIO Ot I11.0 HYPERTENSIVE HEART DISEASE WITH HEART FA 11/15/2017 ESTEBAN DO, MAURILIO Ot I21.4 NON-ST ELEVATION (NSTEMI) MYOCARDIAL INF 11/15/2017 ESTEBAN DO, MAURILIO Ot I25.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 11/15/2017 ESTEBAN DO, MAURILIO Ot I42.8 OTHER CARDIOMYOPATHIES 11/15/2017 ESTEBAN DO, MAURILIO Ot I49.3 VENTRICULAR PREMATURE DEPOLARIZATION 11/15/2017 ESTEBAN DO, MAURILIO Ot I49.5 SICK SINUS SYNDROME 11/15/2017 ESTEBAN DO, MAURILIO Ot I50.21 ACUTE SYSTOLIC (CONGESTIVE) HEART FAILUR 11/15/2017 ESTEBAN DO, MAURILIO Ot I70.8 ATHEROSCLEROSIS OF OTHER ARTERIES 11/15/2017 ESTEBAN DO, MAURILIO Ot I95.9 HYPOTENSION, UNSPECIFIED 11/15/2017 ESTEBAN DO, MAURILIO Ot R00.1 BRADYCARDIA, UNSPECIFIED 11/15/2017 ESTEBAN DO, MAURILIO Ot Z82.49 FAMILY HX OF ISCHEM HEART DIS AND OTH DI 11/15/2017 ESTEBAN DO, MAURILIO Ot E27.9 DISORDER OF ADRENAL GLAND, UNSPECIFIED 11/15/2017 ESTEBAN DO, MAURILIO Ot E78.2 MIXED HYPERLIPIDEMIA 11/15/2017 ESTEBAN DO, MAURILIO Ot E78.5 HYPERLIPIDEMIA, UNSPECIFIED 11/15/2017 ESTEBAN DO, MAURILIO Ot F17.210 NICOTINE DEPENDENCE, CIGARETTES, UNCOMPL 11/15/2017 ESTEBAN DO, MAURILIO Ot I10 ESSENTIAL (PRIMARY) HYPERTENSION 11/15/2017 ESTEBAN DO, MAURILIO Ot I11.0 HYPERTENSIVE HEART DISEASE WITH HEART FA 11/15/2017 ESTEBAN DO, MAURILIO Ot I21.4 NON-ST ELEVATION (NSTEMI) MYOCARDIAL INF 11/15/2017 ESTEBAN DO, MAURILIO Ot I25.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 11/15/2017 ESTEBAN DO, MAURILIO Ot I42.8 OTHER CARDIOMYOPATHIES 11/15/2017 ESTEBANMAURILIO JETT DO Ot I49.3 VENTRICULAR PREMATURE DEPOLARIZATION 11/15/2017 ESTEBANPASTOR JETT DOI Ot I49.5 SICK SINUS SYNDROME 11/15/2017 CARLITO SORIANO MAURILIO Ot I50.21 ACUTE SYSTOLIC (CONGESTIVE) HEART FAILUR 11/15/2017 ESTEBANJOHNIE SORIANO MAURILIO Ot I70.8 ATHEROSCLEROSIS OF OTHER ARTERIES 11/15/2017 ESTEBAN DO MAURILIO Ot I95.9 HYPOTENSION, UNSPECIFIED 11/15/2017 PASTOR ESTEBAN DOI Ot R00.1 BRADYCARDIA, UNSPECIFIED 11/15/2017 CARLITO SORIANO MAURILIO Ot Z82.49 FAMILY HX OF ISCHEM HEART DIS AND OTH DI Procedures Code Description Performed By Performed On [id number] MEASURE OF CARDIAC SAMPL PRESSURE, L H 11/12/2017 [id number] FLUOROSCOPY OF MULT COR ART USING L OSM 11/12/2017 [id number] FLUOROSCOPY OF LEFT HEART USING LOW OSMO 11/12/2017 [id number] FLUOROSCOPY OF THORACIC AORTA USING LOW 11/12/2017 Results Test Result Range Comp. Metabolic Panel [...] 11/12/17 16:05 Myoglobin, serum 40.2 ng/mL 10.0-92.0 Serum or plasma C reactive protein measurement (mass/volume) - 11/12/17 23:11 Serum or plasma C reactive protein measurement (mass/volume) 0.19 mg /dL 0.00-0.50 Serum or plasma troponin i.cardiac measurement (mass/volume) - 11/12/17 23:11 Serum or plasma troponin i.cardiac measurement (mass/volume) 1.59 ng /mL <0.30 Tick identification panel - 11/12/17 23:11 Serum Ehrlichia chaffeensis IgG antibody detection <1:16 <1:16 Serum Ehrlichia chaffeensis IgM antibody detection <1:10 <1:10 Serum Rickettsia rickettsii IgG antibody assay (units/volume) < <1:16 [place] spotted fever panel < <1:10 Francisella tularensis antibody assay <1:20 NRG LYME AB G M 0.11 % 0.00-0.89 Interpretation of Lyme disease antibody assay Negative Negative Whole blood basic metabolic panel - 11/13/17 03:14 Serum or plasma sodium measurement (moles/volume) 138 mmol/L 135-145 Serum or plasma potassium measurement (moles/volume) 4.0 mmol/L 3.6-5.0 Serum or plasma chloride measurement (moles/volume) 108 mmol/L 98-107 Carbon dioxide 23 mmol/L 21-32 Serum or plasma anion gap determination (moles/volume) 7 mmol/L 5-14 Serum or plasma urea nitrogen measurement (mass/volume) 8 mg/dL 7-18 Serum or plasma creatinine measurement (mass/volume) 0.71 mg/dL 0.60-1.30 Serum or plasma urea nitrogen/creatinine mass ratio 11 NRG Serum or plasma creatinine measurement with calculation of estimated glomerular filtration rate > NRG Serum or plasma glucose measurement (mass/volume) 103 mg/dL 70-105 Serum or plasma calcium measurement (mass/volume) 8.2 mg/dL 8.5-10.1 Magnesium - 11/13/17 03:14 Magnesium 1.9 mg/dL 1.8-2.4 Serum or plasma troponin i.cardiac measurement (mass/volume) - 11/13/17 03:14 Serum or plasma troponin i.cardiac measurement (mass/volume) 9.34 ng /mL <0.30 Serum or plasma lithium measurement (moles/volume) - 11/13/17 03:14 BNP level 157.6 pg/mL <100.0 Lipid 1996 panel - 11/13/17 03:14 Serum or plasma triglyceride measurement (mass/volume) 150 mg/dL <150 Serum or plasma cholesterol measurement (mass/volume) 165 mg/dL < 200 Serum or plasma cholesterol in HDL measurement (mass/volume) 42 mg/ dL 40-60 Cholesterol in LDL [mass/volume] in serum or plasma by direct assay 105 mg/dL 1-129 Serum or plasma cholesterol in VLDL measurement (mass/volume) 30 mg/ dL 5-40 THYROID STIMULATING HORMONE - 11/13/17 03:14 THYROID STIMULATING HORMONE 0.35 u[iU]/mL 0.35-4.94 Automated blood complete blood count (hemogram) panel - 11/14/17 06:37 Blood leukocytes automated count (number/volume) 7.4 10*3/uL 4.3-11.0 Blood erythrocytes automated count (number/volume) 3.98 10*6/uL 4.35-5.85 Venous blood hemoglobin measurement (mass/volume) 12.7 g/dL 13.3-17.7 Blood hematocrit (volume fraction) 37 % 40-54 Automated erythrocyte mean corpuscular volume 94 [foz_us] 80-99 Automated erythrocyte mean corpuscular hemoglobin (mass per erythrocyte) 32 pg 25-34 Automated erythrocyte mean corpuscular hemoglobin concentration measurement ( mass/volume) 34 g/dL 32-36 Automated erythrocyte distribution width ratio 13.9 % 10.0-14.5 Automated blood platelet count (count/volume) 166 10*3/uL 130-400 Automated blood platelet mean volume measurement 10.0 [foz_us] 7.4-10.4 Whole blood basic metabolic panel - 11/14/17 06:37 Serum or plasma sodium measurement (moles/volume) 141 mmol/L 135-145 Serum or plasma potassium measurement (moles/volume) 4.1 mmol/L 3.6-5.0 Serum or plasma chloride measurement (moles/volume) 111 mmol/L 98-107 Carbon dioxide 24 mmol/L 21-32 Serum or plasma anion gap determination (moles/volume) 6 mmol/L 5-14 Serum or plasma urea nitrogen measurement (mass/volume) 8 mg/dL 7-18 Serum or plasma creatinine measurement (mass/volume) 0.75 mg/dL 0.60-1.30 Serum or plasma urea nitrogen/creatinine mass ratio 11 NRG Serum or plasma creatinine measurement with calculation of estimated glomerular filtration rate > NRG Serum or plasma glucose measurement (mass/volume) 92 mg/dL 70-105 Serum or plasma calcium measurement (mass/volume) 8.3 mg/dL 8.5-10.1 Serum or plasma lithium measurement (moles/volume) - 11/14/17 06:37 BNP level 400.9 pg/mL <100.0 Serum or plasma troponin i.cardiac measurement (mass/volume) - 11/14/17 06:37 Serum or plasma troponin i.cardiac measurement (mass/volume) 11.37 ng/mL <0.30 Serum or plasma troponin i.cardiac measurement (mass/volume) - 11/14/17 14:30 Serum or plasma troponin i.cardiac measurement (mass/volume) 9.48 ng /mL <0.30 Myoglobin, serum - 11/14/17 14:30 Myoglobin, serum 31.6 ng/mL 10.0-92.0 Serum or plasma troponin i.cardiac measurement (mass/volume) - 11/15/17 05:38 Serum or plasma troponin i.cardiac measurement (mass/volume) 6.72 ng /mL <0.30 Myoglobin, serum - 11/15/17 05:38 Myoglobin, serum 28.2 ng/mL 10.0-92.0 Encounters ACCT No. Visit Date/Time Discharge Status Pt. Type Provider Facility Loc./Unit Complaint [id number] 06/12/2013 10:25:00 06/12/2013 23:59:59 CLS Outpatient RHONDA STEVENSON DO [id number] 02/22/2017 08:07:00 Document Registration [id number] 11/15/2017 11:01:00 11/15/2017 23:59:59 CLS Outpatient LIZETT PÉREZ MD [facility] CARD NSVT I47.2 [id number] 11/13/2017 08:14:00 11/15/2017 10:42:00 DIS Inpatient MAURILIO ESTEBAN DO [facility] 4TH CHEST PAIN W/EXERTION, SINUS BRADYCARDIA [id number] 05/21/2017 16:20:00 05/21/2017 23:59:59 CLS Outpatient RAJIV CORTEZ APRN [facility] [id number] 02/23/2014 11:41:07 02/23/2014 23:59:00 DIS Outpatient [facility] FRDCCL [id number] 02/08/2014 11:01:14 02/08/2014 23:59:00 DIS Outpatient [facility] FLBJWL
== END 2017-11-15 10:42 | disposition home or self-care (01) | DRG 280 ==
LOC: ER 16:01 → ICU 18:25 → UNDOADMOB 18:25 → ICU 19:37 → OBSVTOIN 11-13 08:14 → INTOOBSV 11-13 08:14 → OBSVTOIN 11-13 08:15 → ICU 11-13 12:52 → 4TH 11-14 15:45 → ICU 11-14 15:45 → UNDODISIN 11-15 10:42
PROVIDERS: ADMIT Internal Medicine; ATTEND Internal Medicine
PROC: 4A023N7 Measurement of Cardiac Sampling and Pressure, Left Heart, Percutaneous Approach (ICD-10-PCS; principal; 2017-11-12)
PROC: B2111ZZ Fluoroscopy of Multiple Coronary Arteries using Low Osmolar Contrast (ICD-10-PCS; 2017-11-12)
PROC: B2151ZZ Fluoroscopy of Left Heart using Low Osmolar Contrast (ICD-10-PCS; 2017-11-12)
PROC: B3101ZZ Fluoroscopy of Thoracic Aorta using Low Osmolar Contrast (ICD-10-PCS; 2017-11-12)
DX: I21.4 Non-ST elevation (NSTEMI) myocardial infarction (principal); I25.110 Atherosclerotic heart disease of native coronary artery with unstable angina pectoris; I42.8 Other cardiomyopathies; I11.0 Hypertensive heart disease with heart failure; I50.21 Acute systolic (congestive) heart failure; I49.3 Ventricular premature depolarization; I49.5 Sick sinus syndrome; F17.210 Nicotine dependence, cigarettes, uncomplicated; R00.1 Bradycardia, unspecified; E27.9 Disorder of adrenal gland, unspecified; I95.9 Hypotension, unspecified; E78.2 Mixed hyperlipidemia; I70.8 Atherosclerosis of other arteries; Z82.49 Family history of ischemic heart disease and other diseases of the circulatory system
CPT/HCPCS: 36221; 36415; 71045; 71275; 80048; 80053; 80061; 83735; 83874; 83880; 84443; 84484; 85025; 85027; 85610; 85730; 86141; 86618; 86666; 86668; 86757; 93005; 93041; 93306; 93458; 96365; 96375

== ENCOUNTER 2017-11-15 11:01 | Outpatient (RCR) | payer MEDICARE, OTHER ==
[~2017-11-15 11:01] MED LIST: ASPI-983 PO; ATOR10TA66 PO; LISI-556 PO; METO-333 PO; OMG1KC PO
== END 2018-02-13 | disposition home or self-care (01) ==
LOC: CARD 11:01
PROVIDERS: ATTEND Internal Medicine Cardiovascular Disease
DX: I47.2 Ventricular tachycardia (principal)
CPT/HCPCS: 93225; 93226

== ENCOUNTER 2018-01-30 10:14 | Day surgery (SDC) | payer MEDICARE, OTHER ==
[~2018-01-30] VITALS: Ht 167.6 cm; Wt 72.6 kg
--- OUTSIDE RECORDS SUMMARY | 2018-01-30 10:18 | XMS REPORT | Continuity of Care Document ---
Author Author [facility] Ctr of [facility] Ctr [facility] Address Unknown Phone Unavailable Allergies Active Description Code Type Severity Reaction Onset Reported/Identified Relationship to Patient Clinical Status Yes Sulfa (Sulfonamide Antibiotics) [id number] Drug Allergy Mild N/A 2017 Medications There [...] MAURILIO Ot I25.110 ATHSCL HEART DISEASE OF [place] ART W 11/14/2017 CARLITO SORIANO MAURILIO [...] MAURILIO Ot I25.110 ATHSCL HEART DISEASE OF [place] ART W 11/14/2017 ESTEBAN DO, MAURILIO [...] MAURILIO Ot I25.110 ATHSCL HEART DISEASE OF [place] ART W 11/14/2017 ESTEBAN DO, MAURILIO [...] MAURILIO Ot I25.110 ATHSCL HEART DISEASE OF [place] ART W 11/14/2017 ESTEBAN DO, MAURILIO [...] MAURILIO Ot I25.110 ATHSCL HEART DISEASE OF [place] ART W 11/15/2017 ESTEBAN DO, MAURILIO [...] MAURILIO Ot I25.110 ATHSCL HEART DISEASE OF [place] ART W 11/15/2017 ESTEBAN DO, MAURILIO [...] OF ISCHEM HEART DIS AND OTH DI 11/21/2017 ESTEBAN DO, MAURILIO Ot E27.9 DISORDER OF ADRENAL GLAND, UNSPECIFIED 11/21/2017 ESTEBAN DO, MAURILIO Ot E78.2 MIXED HYPERLIPIDEMIA 11/21/2017 ESTEBAN DO, MAURILIO Ot F17.210 NICOTINE DEPENDENCE, CIGARETTES, UNCOMPL 11/21/2017 ESTEBAN DO, MAURILIO Ot I11.0 HYPERTENSIVE HEART DISEASE WITH HEART FA 11/21/2017 ESTEBAN DO, MAURILIO Ot I21.4 NON-ST ELEVATION (NSTEMI) MYOCARDIAL INF 11/21/2017 ESTEBAN DO, MAURILIO Ot I25.110 ATHSCL HEART DISEASE OF [place] ART W 11/21/2017 ESTEBAN DO, MAURILIO Ot I42.8 OTHER CARDIOMYOPATHIES 11/21/2017 ESTEBAN DO, MAURILIO Ot I49.3 VENTRICULAR PREMATURE DEPOLARIZATION 11/21/2017 ESTEBAN DO, MAURILIO Ot I49.5 SICK SINUS SYNDROME 11/21/2017 ESTEBAN DO, MAURILIO Ot I50.21 ACUTE SYSTOLIC (CONGESTIVE) HEART FAILUR 11/21/2017 ESTEBAN DO, MAURILIO Ot I70.8 ATHEROSCLEROSIS OF OTHER ARTERIES 11/21/2017 ESTEBAN DO, MAURILIO Ot I95.9 HYPOTENSION, UNSPECIFIED 11/21/2017 ESTEBAN DO, MAURILIO Ot R00.1 BRADYCARDIA, UNSPECIFIED 11/21/2017 ESTEBAN DO, MAURILIO Ot Z82.49 FAMILY HX OF ISCHEM HEART DIS AND OTH DI 11/21/2017 ESTEBAN DO, MAURILIO Ot E27.9 DISORDER OF ADRENAL GLAND, UNSPECIFIED 11/21/2017 ESTEBAN DO, MAURILIO Ot E78.2 MIXED HYPERLIPIDEMIA 11/21/2017 ESTEBAN DO, MAURILIO Ot F17.210 NICOTINE DEPENDENCE, CIGARETTES, UNCOMPL 11/21/2017 ESTEBAN DO, MAURILIO Ot I11.0 HYPERTENSIVE HEART DISEASE WITH HEART FA 11/21/2017 ESTEBAN DO, MAURILIO Ot I21.4 NON-ST ELEVATION (NSTEMI) MYOCARDIAL INF 11/21/2017 ESTEBAN DO, MAURILIO Ot I25.110 ATHSCL HEART DISEASE OF [place] ART W 11/21/2017 ESTEBAN DO, MAURILIO Ot I42.8 OTHER CARDIOMYOPATHIES 11/21/2017 ESTEBAN DO, MAURILIO Ot I49.3 VENTRICULAR PREMATURE DEPOLARIZATION 11/21/2017 ESTEBAN DO, MAURILIO Ot I49.5 SICK SINUS SYNDROME 11/21/2017 ESTEBAN DO, MAURILIO Ot I50.21 ACUTE SYSTOLIC (CONGESTIVE) HEART FAILUR 11/21/2017 ESTEBAN DO, MAURILIO Ot I70.8 ATHEROSCLEROSIS OF OTHER ARTERIES 11/21/2017 ESTEBAN DO, MAURILIO Ot I95.9 HYPOTENSION, UNSPECIFIED 11/21/2017 ESTEBAN DO, MAURILIO Ot R00.1 BRADYCARDIA, UNSPECIFIED 11/21/2017 ESTEBAN DO, MAURILIO Ot Z82.49 FAMILY HX OF ISCHEM HEART DIS AND OTH DI 11/21/2017 ESTEBAN DO, MAURILIO Ot E27.9 DISORDER OF ADRENAL GLAND, UNSPECIFIED 11/21/2017 ESTEBAN DO, MAURILIO Ot E78.2 MIXED HYPERLIPIDEMIA 11/21/2017 ESTEBAN DO, MAURILIO Ot F17.210 NICOTINE DEPENDENCE, CIGARETTES, UNCOMPL 11/21/2017 ESTEBAN DO, MAURILIO Ot I11.0 HYPERTENSIVE HEART DISEASE WITH HEART FA 11/21/2017 ESTEBAN DO, MAURILIO Ot I21.4 NON-ST ELEVATION (NSTEMI) MYOCARDIAL INF 11/21/2017 ESTEBAN DO, MAURILIO Ot I25.110 ATHSCL HEART DISEASE OF [place] ART W 11/21/2017 ESTEBAN DO, MAURILIO Ot I42.8 OTHER CARDIOMYOPATHIES 11/21/2017 ESTEBAN DO, MAURILIO Ot I49.3 VENTRICULAR PREMATURE DEPOLARIZATION 11/21/2017 ESTEBAN DO, MAURILIO Ot I49.5 SICK SINUS SYNDROME 11/21/2017 ESTEBAN DO, MAURILIO Ot I50.21 ACUTE SYSTOLIC (CONGESTIVE) HEART FAILUR 11/21/2017 ESTEBAN DO, MAURILIO Ot I70.8 ATHEROSCLEROSIS OF OTHER ARTERIES 11/21/2017 PASTOR ESTEBAN DOI Ot I95.9 HYPOTENSION, UNSPECIFIED 11/21/2017 MAURILIO ESTEBAN DO Ot R00.1 BRADYCARDIA, UNSPECIFIED 11/21/2017 MAURILIO ESTEBAN DO Ot Z82.49 FAMILY HX OF ISCHEM HEART DIS AND OTH DI 01/03/2018 BETO DENNEY, LIZETT Ruggireo Ot I47.2 VENTRICULAR TACHYCARDIA 01/28/2018 LIZETT PÉREZ MD, Ot I47.2 VENTRICULAR TACHYCARDIA Procedures Code Description Performed By Performed On [id number] MEASURE OF CARDIAC SAMPL PRESSURE, L H 11/12/2017 [id number] FLUOROSCOPY OF MULT COR ART USING L OSM 11/12/2017 [id number] FLUOROSCOPY OF LEFT HEART USING LOW OSMO 11/12/2017 [id number] FLUOROSCOPY OF THORACIC AORTA USING LOW 11/12/2017 [...] rickettsii IgG antibody assay (units/volume) < <1:16 [place] spotted fever panel < <1:10 Francisella tularensis [...] Status Pt. Type Provider Facility Loc./Unit Complaint [id number] 06/12/2013 10:25:00 06/12/2013 23:59:59 CLS Outpatient RHONDA STEVENSON DO [id number] 02/22/2017 08:07:00 Document Registration [id number] 11/15/2017 11:01:00 11/15/2017 23:59:59 CLS Outpatient LIZETT PÉREZ MD [facility] CARD NSVT I47.2 [id number] 11/13/2017 08:15:00 11/15/2017 10:42:00 DIS Inpatient MAURILIO ESTEBAN DO [facility] 4TH CHEST PAIN W/EXERTION, SINUS BRADYCARDIA [id number] 01/30/2018 12:00:00 PEN Preadmit Sandy FLEMING MD [facility] CATH SINUS NODE DYSFUNCTION [id number] 11/27/2017 13:20:00 11/27/2017 23:59:59 CLS Outpatient RAJIV CORTEZ APRN [facility] [id number] 02/23/2014 11:41:07 02/23/2014 23:59:00 DIS Outpatient [facility] FRDCCL [id number] 02/08/2014 11:01:14 02/08/2014 23:59:00 DIS Outpatient [facility] FLBJWL
[2018-01-30] MEDS ORDERED: LIDOCAINE 1% INJ 20 ML 20 ML VIAL ONE (10:21)
[2018-01-30 10:31] VITALS: BP 123/93
[2018-01-30 13:00] VITALS: BP 123/93
--- NOTE | 2018-01-30 16:33 | Implantation of Loop Monitor ---
Implant of Loop Monitior PROCEDURE PHYSICIAN: Stewart Munoz MD IMPLANTATION OF LOOP MONITOR REPORT DATE OF PROCEDURE: 01/30/18 ATTENDING PHYSICIAN: Dr. Casey Munoz. REFERRING PHYSICIAN: PERFORMING PHYSICIAN: Dr. Casey Munoz. INDICATION: Long-term surveillance of atrial fibrillation PREOP DIAGNOSIS: Long-term surveillance of atrial fibrillation POSTOP DIAGNOSIS: Atrial fibrillation, s/p implantation of loop recorder. PROCEDURE DETAILS: The patient is a 68 male with history of paroxysmal atrial fibrillation requiring long-term surveillance. Therefore implantable loop recorder was discussed and agreed with the patient. Informed consent was taken. All risks and complications were discussed at length. The patient was draped and prepped in the usual sterile fashion. Local anesthesia was lidocaine, which was given in the substernal area close to the 4th intercostal space. Loop monitor was implanted according to the protocol. Steri-Strips were placed at the end of the procedure. There were no complications and the patient tolerated the procedure well. ANESTHESIA: Local anesthesia with lidocaine. COMPLICATIONS: None CONTRAST/FLUOROSCOPY: None CONCLUSION: 1. Successful implantation of loop monitor for defibrillation. 2. No complication and the patient tolerated the procedure well. Stewart Munoz MD, RS, CCDS Cardiac Electrophysiology Sandy MUNOZ MD Jan 30, 2018 16:33
== END 2018-01-30 13:29 | disposition home or self-care (01) ==
LOC: CATH 10:14
PROVIDERS: ATTEND Internal Medicine Interventional Cardiology
DX: I48.91 Unspecified atrial fibrillation (principal); I42.8 Other cardiomyopathies; I49.5 Sick sinus syndrome; I25.10 Atherosclerotic heart disease of native coronary artery without angina pectoris; I11.0 Hypertensive heart disease with heart failure; I50.9 Heart failure, unspecified; F17.210 Nicotine dependence, cigarettes, uncomplicated; E78.2 Mixed hyperlipidemia; Z79.82 Long term (current) use of aspirin
CPT/HCPCS: 33282

== ENCOUNTER → 2018-10-22 | Outpatient (CLI) | payer MEDICARE, OTHER | LOC: CARD 08:30 | PROVIDERS: ATTEND Internal Medicine Cardiovascular Disease | DX: I25.10 Atherosclerotic heart disease of native coronary artery without angina pectoris (principal); E78.2 Mixed hyperlipidemia; I49.5 Sick sinus syndrome; R00.1 Bradycardia, unspecified; R06.09 Other forms of dyspnea; I07.1 Rheumatic tricuspid insufficiency | CPT/HCPCS: 93306 ==

== ENCOUNTER → 2018-10-27 | Outpatient (CLI) | payer MEDICARE, OTHER ==
[~2018-10-27] MED LIST changes: +CATHETER FLUSH 10 ML SYR IV PRN; +REGADENOSON 0.4 MG/5 ML SYR (LEXISCAN) IV ONE
[2018-10-27 08:50] VITALS: BP 127/73
[2018-10-27 09:00] VITALS: BP 157/74
--- NOTE | 2018-10-28 00:22 | STRESS TEST ---
DATE OF SERVICE: 10/27/2018 EXERCISE THEN LEXISCAN MYOVIEW STRESS TEST REPORT REFERRING PHYSICIAN: [facility]. Baseline heart rate is 58, baseline blood pressure 118/76. Baseline EKG is sinus rhythm with right bundle branch block. SUMMARY: The patient was injected with 10.17 mCi of technetium-99 Myoview and the resting images were obtained. Then, the patient started exercising, was unable to perform beyond 3 minutes and 48 seconds. Test was terminated and converted to Lexiscan Myoview stress test. The patient received 0.4 mg of Lexiscan followed by 29.5 mCi of technetium-99 Myoview. Throughout the test, there were no EKG changes. The resting and stress images were reviewed and compared in the short axis, horizontal long axis, and vertical long axis views. Review of the images showed diaphragmatic attenuation with reversible ischemia involving the mid to apical anterior wall and inferoapical segment. SSS is 10, SDS S7, TID value 0.94. On the gated images, the left ventricle appeared to be normal size with hypokinesia at the anterior wall. Calculated ejection fraction 41%. CONCLUSION: 1. The patient was unable to exercise beyond 3 minutes and 48 seconds on standard Hernandez protocol. Test was terminated and converted to Lexiscan Myoview. 2. The patient tolerated Lexiscan well. 3. Diaphragmatic attenuation with reversible ischemia involving the mid to apical anterior wall, true apex and inferoapical segment. 4. Normal left ventricular size with hypokinesia at the anterior wall. Calculated ejection fraction 41%. Job ID: [id number] DocumentID: [id number] Dictated Date: 10/27/2018 16:53:34 Environmental Services Supervisor Date: 10/28/2018 00:21:43 Dictated By: LIZETT PÉREZ MD
== END ==
LOC: CARD 07:25
PROVIDERS: ATTEND Internal Medicine Cardiovascular Disease
DX: I25.10 Atherosclerotic heart disease of native coronary artery without angina pectoris (principal); I51.9 Heart disease, unspecified; E78.2 Mixed hyperlipidemia; I49.5 Sick sinus syndrome; R00.1 Bradycardia, unspecified; R06.09 Other forms of dyspnea
CPT/HCPCS: 78452; 93017

== ENCOUNTER 2019-07-23 16:46 | Emergency (ER) | payer MEDICARE, OTHER ==
[~2019-07-23] VITALS: Ht 167 cm; Wt 70.0 kg
[~2019-07-23 16:46] MED LIST changes: -CATHETER FLUSH 10 ML SYR IV PRN; -REGADENOSON 0.4 MG/5 ML SYR (LEXISCAN) IV ONE
[2019-07-23] MEDS ORDERED: NS IV 1000 ML 1,000 ML IV SCH (16:56)
--- NOTE | 2019-07-23 17:00 | NUR ---
SEE LIST FOR CURRENT MEDS
[2019-07-23] MEDS ORDERED: HOLD METFORMIN - RECEIVED CONTRAST 20 ML VIAL IV SCH (17:15)
[2019-07-23] MEDS ORDERED: NS 100 ML (IVPB) BAG IV ONE (17:15)
[2019-07-23] MEDS ORDERED: IOHEXOL 350 MG/ML 100 ML (OMNIPAQUE 350) VIAL IV ONE (17:15)
--- NOTE | 2019-07-23 17:17 | ED Fall/Injury ---
General Stated Complaint: FALL Source: patient (BOB KWAN DO) History of Present Illness Date Seen by Provider: Jul 23, 2019 Time Seen by Provider: 16:48 Initial Comments PT ARRIVES VIA EMS FROM HOME, WITH CERVICAL COLLAR IN PLACE PT STATES HE WAS STANDING 3-4 FEET UP ON A LADDER, AND NEW SHOES ( HAVE RUBBER "CLEATS" ON THE SOLES) GOT CAUGHT ON ONE OF THE RUNGS OF THE LADDER, AND HE FELL OFF, LANDING ON LEFT SIDE ON CONCRETE. WEATHER IS ALSO VERY WINDY TODAY DENIES LOSS OF CONSCIOUSNESS, AND STATES THAT WHEN HE TRIED TO GET UP, HE BECAME VERY DIZZY AND NAUSEATED--THIS HAS SUBSIDED. PT WAS ABLE TO CALL HIS DAUGHTER, WHO WAS JUST INSIDE THE HOUSE. THE INCIDENT WAS NOT WITNESSED OCCURRED JUST PRIOR TO ARRIVAL DENIES NECK OR BACK PAIN C/O LEFT RIB/CHEST PAIN , BUT DOES NOT FEEL SHORT OF BREATH C/O LEFT HIP/GROIN PAIN--WAS NOT ABLE TO BEAR WEIGHT ON LEFT LEG. STATES PAIN IN LEFT HIP/GROIN AREA IS ONLY MILD WHILE HE IS LAYING DOWN, BUT IS SEVERE WHEN HE TRIES TO STAND ON LEFT LEG, AND IS UNABLE TO BEAR ANY WEIGHT ON LEFT LEG. NO PARESTHESIAS OR MOTOR DEFICITS NO VISION CHANGES PCP: [facility] (BOB KWAN DO) Allergies and Home Medications Allergies Coded Allergies: Sulfa (Sulfonamide Antibiotics) (Unverified Adverse Reaction, Mild, 11/12/17) pt states sulfa gives him a "sore tongue" Home Medications Aspirin 81 Mg Tablet.dr, 81 MG PO DAILY Prescribed by: LIZETT PÉREZ on 11/15/17 09 Atorvastatin Calcium 10 Mg Tablet, 10 MG PO HS Prescribed by: LIZETT PÉREZ on 11/15/17 09 Lisinopril 5 Mg Tablet, 5 MG PO DAILY Prescribed by: LIZETT PÉREZ on 11/15/17 0916 Metoprolol Tartrate 25 Mg Tablet, 25 MG PO TID Prescribed by: Sandy FLEMING on 11/15/17 1040 [place] 3 Polyunsat Fatty Acids 1,000 Mg Cap, 1,000 MG PO BID WITH MEALS Prescribed by: LIZETT PÉREZ on 11/15/17 0916 Patient Home Medication List Home Medication List Reviewed: Yes (TIFFANY BREWER MD) Review of Systems Review of Systems Constitutional: see HPI, dizziness Eyes: No Symptoms Reported Ears, Nose, Mouth, Throat: no symptoms reported Respiratory: no symptoms reported Cardiovascular: see HPI; No edema, No palpitations, No syncope Gastrointestinal: see HPI; No abdominal pain, No diarrhea; nausea; No vomiting Genitourinary: no symptoms reported Musculoskeletal: see HPI Skin: no symptoms reported Psychiatric/Neurological: No Symptoms Reported; Denies Headache, Denies Numbness, Denies Paresthesia, Denies Seizure, Denies Tingling, Denies Weakness (BOB KWAN DO) Past Thttnuc-Ysjtxi-Nsvtyj Hx Past Med/Social Hx: Reviewed and Corrections made (BOB KWAN DO) Patient Social History Alcohol Use: Denies Use Recreational Drug Use: No Smoking Status: Current Everyday Smoker (1 PPD) Type Used: Cigarettes 2nd Hand Smoke Exposure: Yes Recent Foreign Travel: No Contact w/Someone Who Travel: No Recent Hopitalizations: No (BOB KWAN DO) Immunizations Up To Date PED Vaccines UTD: No (BOB KWAN DO) Seasonal Allergies Seasonal Allergies: No (BOB KWAN DO) Past Medical History Surgeries: Yes (HERNIA REPAIR; LOOP RECORDER) Abdominal, Cardiac Respiratory: No Currently Using CPAP: No Currently Using BIPAP: No Cardiac: Yes (LOOP RECORDER FOR PAROXYSMAL ATRIAL FIBRILLATION) Atrial Fibrillation, Coronary Artery Disease, Heart Attack, Hypertension Neurological: No Sexually Transmitted Disease: No HIV/AIDS: No Genitourinary: No Gastrointestinal: Yes Abdominal Hernia Musculoskeletal: No Endocrine: No HEENT: No Cancer: No Psychosocial: No Integumentary: No Blood Disorders: No Adverse Reaction/Blood Tranf: No (BOB KWAN DO) Family Medical History Anxiety disorder G8 SISTER Arthritis 19 MOTHER FH: atrial fibrillation G8 SISTER FH: breast cancer in first degree relative G8 SISTER Hypertension, Vascular Disease 11/12/17--CARDIAC CATH--MILD TO MODERATE, NON-OCCLUSIVE CAD, SEVERE NON-ISCHEMIC CARDIOMYPATHY WITH EF 30% 10/2018--STRESS TEST--REVERSIBLE ISCHEMIA, EF 41/% (BOB KWAN DO) Physical Exam Vital Signs Vital Signs - First Documented 07/23/19 16:48 Temp 36.4 Pulse 70 Resp 18 B/P (MAP) 140/86 (104) Pulse Ox 97 (TIFFANY BREWER MD) Vital Signs Capillary Refill : (BOB KWAN DO) Height, Weight, BMI Height: 5'6.00" Weight: 160lbs. 0.0oz. [id number]; 25.8 BMI Method:Estimated General Appearance: WD/WN, no apparent distress, other (VERY TALKATIVE. DOES NOT APPEAR TO BE IN ANY DISCOMFORT OR DISTRESS) HEENT: PERRL/EOMI, normal ENT inspection, TMs normal, pharynx normal Cardiovascular: normal peripheral pulses, regular rate, rhythm, no edema, no JVD, no murmur Respiratory: normal breath sounds, no respiratory distress, no accessory muscle use, other (TENDERNESS TO LEFT MID LATERAL CHEST. NO EXTERNAL EVIDENCE OF TRAUMA, NO CREPITANCE OR SUB Q AIR) Peripheral Pulses: 2+ Dorsalis Pedis (R), 2+ Left Dors-Pedis (L), 2+ Radial Pulses (R), 2+ Radial Pulses (L) Gastrointestinal: normal bowel sounds, non tender, soft, no organomegaly, no pulsatile mass Back: no vertebral tenderness, CVA tenderness (L) Extremities: no pedal edema, no calf tenderness, normal capillary refill, other (TENDERNESS TO LEFT GROIN. NO HIP OR ILIAC CREST OR SACRAL TENDERNESS) Neurologic/Psychiatric: saw cleaner II-XII nml as tested, no motor/sensory deficits, alert, normal mood/affect, oriented x 3 Skin: normal color, warm/dry; No ecchymosis; other (NO EXTERNAL EVIDENCE OF TRAUMA ANYWHERE) (BOB KWAN DO) Progress/Results/Core Measures Results/Orders Lab Results Laboratory Tests Test 07/23/19 17:12 07/23/19 20:17 Range/Units White Blood Count 8.1 4.3-11.0 10^3/uL Red Blood Count 4.31 L 4.35-5.85 10^6/uL Hemoglobin 13.9 13.3-17.7 G/DL Hematocrit 40 40-54 % Mean Corpuscular Volume 94 80-99 FL Mean Corpuscular Hemoglobin 32 25-34 PG Mean Corpuscular Hemoglobin Concent 35 32-36 G/DL Red Cell Distribution Width 13.6 10.0-14.5 % Platelet Count 233 130-400 10^3/uL Mean Platelet Volume 10.7 H 7.4-10.4 FL Neutrophils (%) (Auto) 69 42-75 % Lymphocytes (%) (Auto) 22 12-44 % Monocytes (%) (Auto) 8 0-12 % Eosinophils (%) (Auto) 1 0-10 % Basophils (%) (Auto) 0 0-10 % Neutrophils # (Auto) 5.5 1.8-7.8 X 10^3 Lymphocytes # (Auto) 1.8 1.0-4.0 X 10^3 Monocytes # (Auto) 0.7 0.0-1.0 X 10^3 Eosinophils # (Auto) 0.1 0.0-0.3 10^3/uL Basophils # (Auto) 0.0 0.0-0.1 10^3/uL Prothrombin Time 13.2 12.2-14.7 SEC INR Comment 1.0 0.8-1.4 Activated Partial Thromboplast Time 34 24-35 SEC Sodium Level 139 135-145 MMOL/L Potassium Level 4.5 3.6-5.0 MMOL/L Chloride Level 105 98-107 MMOL/L Carbon Dioxide Level 22 21-32 MMOL/L Anion Gap 12 5-14 MMOL/L Blood Urea Nitrogen 15 7-18 MG/DL Creatinine 0.97 0.60-1.30 MG/DL Estimat Glomerular Filtration Rate > 60 BUN/Creatinine Ratio 15 Glucose Level 108 H 70-105 MG/DL Calcium Level 8.9 8.5-10.1 MG/DL Corrected Calcium 9.0 8.5-10.1 MG/DL Magnesium Level 1.8 1.6-2.4 MG/DL Total Bilirubin 0.8 0.1-1.0 MG/DL Aspartate Amino Transf (AST/SGOT) 18 5-34 U/L Alanine Aminotransferase (ALT/SGPT) 16 0-55 U/L Alkaline Phosphatase 68 40-136 U/L Total Protein 6.7 6.4-8.2 GM/DL Albumin 3.9 3.2-4.5 GM/DL Amylase Level 78 25-125 U/L Lipase 38 8-78 U/L Urine Color YELLOW Urine Clarity CLEAR Urine pH 6.0 5-9 Urine Specific [place] <=1.005 1.016-1.022 Urine Protein NEGATIVE NEGATIVE Urine Glucose (UA) NEGATIVE NEGATIVE Urine Ketones TRACE H NEGATIVE Urine Nitrite NEGATIVE NEGATIVE Urine Bilirubin NEGATIVE NEGATIVE Urine Urobilinogen 0.2 < = 1.0 MG/DL Urine Leukocyte Esterase NEGATIVE NEGATIVE Urine RBC (Auto) NEGATIVE NEGATIVE Urine RBC NONE /HPF Urine WBC NONE /HPF Urine Squamous Epithelial Cells RARE /HPF Urine Crystals NONE /LPF Urine Bacteria NEGATIVE /HPF Urine Casts NONE /LPF Urine Mucus NEGATIVE /LPF Urine Culture Indicated NO (TIFFANY BREWER MD) Medications Given in ED Current Medications Medications Dose Ordered Sig/Steph Route Start Time Stop Time Status Last Admin Dose Admin Fentanyl Citrate 50 mcg ONCE ONCE IVP 07/23/19 19:00 07/23/19 19:02 DC 07/23/19 20:18 50 MCG Iohexol 100 ml ONCE ONCE IV 07/23/19 17:15 07/23/19 17:19 DC 07/23/19 18:21 88 ML Sodium Chloride 100 ml ONCE ONCE IV 07/23/19 17:15 07/23/19 17:19 DC 07/23/19 18:21 80 ML (TIFFANY BREWER MD) Vital Signs/I&O 07/23/19 16:48 Temp 36.4 Pulse 70 Resp 18 B/P (MAP) 140/86 (104) Pulse Ox 97 (TIFFANY BREWER MD) Progress Progress Note : Progress Note AFTER INITIALLY AGREEING TO PAIN MEDICATION, WHEN RN WENT INTO ROOM TO GIVE IT, PT NOW DECLINES ANY PAIN MEDICATION NO DETERIORATION IN PT'S CONDITION DURING ER STAY (BOB KWAN DO) Progress Note : Time: 21:23 Progress Note Care of this patient was assumed from Dr. Kwan after shift change. Patient and his family had questions regarding transfer location. Patient's son is a wire rope sales representative for a medical equipment supplier and states he has knowledge of a surgeon named Dr. Sridevi Kaufman at [facility] in [place] with expertise in hip fracture repair. After a very lengthy conversation with the patient and his children I contacted the [facility] transfer center regarding the potential for transferring the patient to Dr. Kaufman team at [facility]. The transfer wire rope sales representative discussed the case with the trauma team and ER. The response was that [facility] does not have the resources capable of managing an acetabular injury at this time. In the meantime, a bed assignment at [facility] was obtained. Patient is agreeable to transfer to [facility]. Patient's pain is controlled at this time and he declines any further pain medication. EMS has been dispatched. (TIFFANY BREWRE MD) Diagnostic Imaging Comments CXR--NO ACUTE PROCESS PELVIS AND LEFT HIP XRAYS--DEGENERATIVE CHANGES, NO ACUTE PROCESS PER RADIOLOGIST REPORTS AT 1829 CT HEAD/CERVICAL SPINE--NO ACUTE PROCESS, CHRONIC DEGENERATIVE CHANGES OF CERVICAL SPINE, AND CHRONIC MICROVASCULAR ISCHEMIC CHANGES, PER DR. SIMPSON VIA PHONE AT 184 CT THORACIC/LUMBAR SPINE--NO ACUTE PROCESS, CHRONIC DEGENERATIVE CHANGES, STABLE 3 CM ANEURYSMAL DILATION OF AORTA, STABLE ADRENAL MASS. PER DR. SIMPSON VIA PHONE AT 1843 CT CHEST/ABDOMEN/PELVIS--ACUTE ACETABULAR FRACTURE OF LEFT HIP. CHRONIC/STABLE CHANGES OTHERWISE--PER DR. SIMPSON VIA PHONE AT 1843 Reviewed: Reviewed by Me (BOB KWAN DO) Departure Communication (Admissions) 1858--CALLED . THEY WILL CALL BACK 1932--SPOKE WITH DR. LUGO, TRAUMA SURGEON AT . SHE ACCEPTS PT FOR ADMIT/TRANSFER (BOB KWAN DO) Impression Primary Impression: S/P FALL FROM LADDER Additional Impressions: Closed left acetabular fracture Contusion of left chest wall Disposition: 02 XFER SHT-TRM HOSP Condition: Stable Transfer Transfer Reason: Exceeds level of care (NO ORTHOPEDIC SERVICES THAT HAVE ABILITY TO TREAT ACETABULAR FRACTURES) Transfer Facility: Method of Transfer: EMS (BOB KWAN DO) Departure-Patient Inst. Referrals: [facility] (PCP) Primary Care Physician RAJIV CORTEZ (Family) Primary Care Physician BOB KWAN DO Jul 23, 2019 17:17 TIFFANY BREWER MD Jul 23, 2019 21:28
[2019-07-23 17:24] LABS: BASOPHILS % (AUTO) 0 % (0-10); EOSINOPHILS # (AUTO) 0.1 10^3/uL (0.0-0.3); EOSINOPHILS % (AUTO) 1 % (0-10); HEMATOCRIT 40 % (40-54); HEMOGLOBIN 13.9 G/DL (13.3-17.7); LYMPHOCYTES # (AUTO) 1.8 X 10^3 (1.0-4.0); LYMPHOCYTES % (AUTO) 22 % (12-44); MEAN CORPUSCULAR HEMOGLOBIN 32 PG (25-34); MEAN CORPUSCULAR HGB CONC 35 G/DL (32-36); MEAN CORPUSCULAR VOLUME 94 FL (80-99); MEAN PLATELET VOLUME 10.7 FL (7.4-10.4); MONOCYTES # (AUTO) 0.7 X 10^3 (0.0-1.0); MONOCYTES % (AUTO) 8 % (0-12); NEUTROPHILS # (AUTO) 5.5 X 10^3 (1.8-7.8); NEUTROPHILS % (AUTO) 69 % (42-75); PLATELET COUNT 233 10^3/uL (130-400); RED CELL DISTRIBUTION WIDTH 13.6 % (10.0-14.5); WHITE BLOOD COUNT 8.1 10^3/uL (4.3-11.0)
[2019-07-23 17:33] LABS: PROTHROMBIN TIME PATIENT 13.2 SEC (12.2-14.7)
[2019-07-23 17:38] LABS: ALANINE AMINOTRANSFERASE 16 U/L (0-55); ALBUMIN 3.9 GM/DL (3.2-4.5); ALKALINE PHOSPHATASE 68 U/L (40-136); AMYLASE 78 U/L (25-125); BILIRUBIN,TOTAL 0.8 MG/DL (0.1-1.0); BUN/CREATININE RATIO 15; CALCIUM 8.9 MG/DL (8.5-10.1); CARBON DIOXIDE 22 MMOL/L (21-32); CHLORIDE 105 MMOL/L (98-107); CREATININE SERUM 0.97 MG/DL (0.60-1.30); GFR ESTIMATED > 60; GLUCOSE 108 MG/DL (70-105); LIPASE 38 U/L (8-78); MAGNESIUM 1.8 MG/DL (1.6-2.4); POTASSIUM 4.5 MMOL/L (3.6-5.0); SODIUM 139 MMOL/L (135-145); TOTAL PROTEIN 6.7 GM/DL (6.4-8.2)
--- NOTE | 2019-07-23 18:15 | Diagnostic Imaging Report ---
EXAMINATION: Supine chest at 5:49 p.m. INDICATION: Fell, chest pain. FINDINGS: The heart size is within normal limits and stable when compared to 11/12/2017. The lungs are clear. There is no evidence for contusion or pneumothorax. There is no sign of failure, pneumonia, or pleural effusion either. The mediastinum is not widened. The osseous structures are intact. In the interval since the prior study, a loop recorder device has been inserted. The device overlies the left perihilar region. IMPRESSION: 1. There is no evidence for an acute cardiopulmonary or bony abnormality. 2. There has been interval insertion of a loop recorder device on the left. Dictated by: Dictated on workstation # [id number]
--- NOTE | 2019-07-23 18:20 | Diagnostic Imaging Report ---
EXAMINATION: Pelvis and left hip at 05:52 p.m. INDICATION: Fell, hip pain. FINDINGS: A single AP view of the pelvis and AP and lateral views of the left hip are obtained. There are no prior studies available for comparison. There is no fracture, dislocation, or acute bony abnormality identified with certainty. There is a small calcific density in the soft tissues adjacent to the lesser trochanter of the left femur. This calcific density has a smooth margin and I suspect that this is more likely a sequela of prior trauma than due to an acute abnormality. There is also a small linear lucency extending through the left acetabulum. This is only seen on one view. The possibility that this is related to a nondisplaced fracture should be considered. There is moderate degenerative disease involving both hip joints and the sacroiliac joints. The visualized lower lumbar spine shows moderate degenerative disc and bony disease at L5-S1 as well. The soft tissues are unremarkable. IMPRESSION: 1. There is no evidence for an acute bony abnormality. There is a question of a nondisplaced fracture involving the left acetabulum however. Reportedly, CT of the chest abdomen and pelvis is pending for further study. 2. The small calcific density adjacent to the lesser trochanter on the left is more likely a sequela of prior trauma than due to an acute injury. Dictated by: Dictated on workstation # [id number]
--- NOTE | 2019-07-23 18:29 | Diagnostic Imaging Report ---
PROCEDURE: CT thoracic and lumbar spine without contrast. TECHNIQUE: Multiple contiguous axial images were obtained through the thoracic and lumbar spine without the use of intravenous contrast. Sagittal and coronal reformations were then performed. All CT scans use one or more of the following dose optimizing techniques: automated exposure control, MA and/or KvP adjustment based on patient size and exam type or iterative reconstruction. INDICATION: Fell. FINDINGS: The reconstructed parasagittal images show the vertebral body heights and alignment to be generally within normal limits. There is no fracture or acute bony abnormality evident. The images of the thoracic vertebra seem similar to the prior CTA chest exam of 11/12/2017. 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 The remainder of the lumbar spine and the thoracic spine are unremarkable for a high-grade central stenosis. The lungs, where visualized, are generally clear. There are mild emphysematous changes involving both upper lobes. The previous CTA chest exam did note bilateral adrenal masses. Those findings are again evident and do not appear to have changed significantly. Consequently, I do suspect that they are most likely related to adrenal adenomas. There is mild aneurysmal dilatation of the infrarenal abdominal aorta. The aorta measures approximately 2.6 x 3.1 cm. IMPRESSION: 1. There is no evidence for an acute bony abnormality of the thoracic or lumbar spine. If clinical concern regarding an occult injury persists, then MRI would be recommended for further study. 2. 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 3. The adrenal masses seen on the previous exam appear stable and are most likely benign. 4. There is mild aneurysmal dilatation of the infrarenal abdominal aorta. Dictated by: Dictated on workstation # [id number]
--- NOTE | 2019-07-23 18:38 | Diagnostic Imaging Report ---
PROCEDURE: CT head and CT cervical spine without contrast. TECHNIQUE: Multiple contiguous axial images were obtained through the brain and cervical spine without the use of intravenous contrast. Sagittal and coronal reformations through the cervical spine were then performed. Auto Exposure Controls were utilized during the CT exam to meet ALARA standards for radiation dose reduction. INDICATION: Fell, head and neck pain. There are no prior studies available for comparison. CT HEAD: There is no mass, shift of the midline or hemorrhage to indicate an acute abnormality. The ventricles are not abnormally dilated. There is cortical atrophy present. The degree of atrophy is consistent with the patient's age. There are also vague areas of low density in the periventricular white matter bilaterally. These findings are nonspecific but may be related to encephalomalacia from microvascular ischemia. The bone windows show no sign of a fracture or destructive lesion. The orbits and sinuses were not visualized in their entirety. Where visualized, there is no acute abnormality. IMPRESSION: 1. There is no evidence for an acute intracranial abnormality. 2. If the patient is anticoagulated and if symptoms of headache persist, then a short-term (24 hour) follow-up CT exam should be obtained. CT cervical spine: The reconstructed parasagittal images show straightening of the cervical spine. This may be secondary to muscle spasm and/or positioning. There is also degenerative disc and bony disease at C5-C6 and C6-C7. At the C5-C6 level, there is a disc bulge centrally. The disc indents the ventral aspect of the thecal sac and does produce moderate central stenosis. The remainder of the cervical spine is unremarkable for a high-grade central stenosis. There is no fracture or acute bony abnormality identified. There is no sign of retropharyngeal edema. The thyroid gland is generally unremarkable. Lung apices are clear. IMPRESSION: 1. There is no evidence for an acute bony abnormality of the cervical spine. 2. There is degenerative disc and bony disease at C5-C6 and there is moderate central stenosis at this level. Dictated by: Dictated on workstation # [id number]
--- NOTE | 2019-07-23 18:51 | Diagnostic Imaging Report ---
PROCEDURE: CT chest, abdomen, and pelvis with contrast. TECHNIQUE: Multiple contiguous axial images were obtained through the chest, abdomen, and pelvis after the administration of intravenous contrast. Auto Exposure Controls were utilized during the CT exam to meet ALARA standards for radiation dose reduction. INDICATION: Fell, left hip and left rib pain. FINDINGS: The images through the thorax show that the heart size is within normal limits and stable when compared to the CTA chest exam of 11/12/2017. The aorta is not abnormally dilated and there is no sign of a dissection. There is no defect within the pulmonary arteries to indicate a pulmonary embolus. There are emphysematous changes involving both lungs, but there is no sign of a pulmonary contusion or pneumothorax. There is no evidence for pneumonia or a pleural effusion either. The bone windows show no evidence for a displaced rib fracture. No other acute bony abnormality is appreciated. The images through the abdomen and pelvis again show the adrenal nodules that were noted on the prior exam. These findings seem stable and consequently are most likely benign. The small cysts within the liver noted on the previous study are unchanged. The liver is otherwise unremarkable. The spleen, pancreas, kidneys, gallbladder, and inferior vena cava are unremarkable for an acute abnormality. There is mild aneurysmal dilatation of the infrarenal abdominal aorta. The aorta measures 2.7 x 3.0 cm. The images through the pelvis do show that there is a slightly displaced fracture of the junction of the left acetabulum and the superior pubic ramus on the left. There also appears to be a nondisplaced fracture extending through the roof of the acetabulum. There is no other fracture of the bony pelvis. There is no pelvic mass or free fluid collection noted. The urinary bladder is grossly unremarkable. The prostate gland does appear to be enlarged. The gland measures 5.5 cm in maximum transverse diameter (normal 5 cm or less). IMPRESSION: 1. There is a slightly displaced fracture of the junction of the left acetabulum and superior pubic ramus. There is also a nondisplaced fracture extending through the roof of the left acetabulum. There is no acute bony abnormality noted otherwise. 2. There is no other acute abnormality of the chest, abdomen, or pelvis identified, either. 3. There is mild aneurysmal dilatation of the infrarenal abdominal aorta. 4. The bilateral adrenal nodules seen previously appear stable and are most likely benign. 5. The prostate gland is enlarged. 6. These results were discussed with Dr. Sharla Kwan at the time of this dictation. Dictated by: Dictated on workstation # [id number]
[2019-07-23] MEDS ORDERED: fentaNYL INJECTION 100 MCG/2 ML AMP IVP ONE ×2 (19:00→21:45)
--- NOTE | 2019-07-23 20:25 | NUR ---
PT FAMILY HAVING QUESTIONS ABOUT TRANSFER, PT'S SON DOES NOT WISH FOR PT TO BE TRANSFERED TO [facility], WISHES TO SPEAK WITH DR BREWER
[2019-07-23 20:26] LABS: BILIRUBIN,URINE NEGATIVE (NEGATIVE); CLARITY,URINE CLEAR; COLOR,URINE YELLOW; GLUCOSE, URINE (UA) NEGATIVE (NEGATIVE); KETONES,URINE TRACE (NEGATIVE); LEUKOCYTE ESTERASE ,URINE NEGATIVE (NEGATIVE); NITRITE,URINE NEGATIVE (NEGATIVE); PROTEIN,URINE NEGATIVE (NEGATIVE)
[2019-07-23 20:41] LABS: BACTERIA,URINE NEGATIVE /HPF; SQUAMOUS EPITHELIAL CELL,UR RARE /HPF
--- NOTE | 2019-07-23 21:45 | NUR ---
ASSUMED CARE OF THIS PATIENT, EMS HAS BEEN PAGED FOR TRANSPORT, PATIENT C/O PAIN DR WILLIAM INFORMED TO PLACE ORDER. PATIENT IS ALERT AND ORIENTED X4, DAUGHTER IN ROOM, INTRODUCED SELF, UPDATED EMS STATUS OF ARRIVAL. MONITORING MAINTAINED.
[2019-07-23 22:00] VITALS: BP 129/68
[2019-07-27] MEDS ORDERED: ATOR10TA PO (11:03)
[2019-07-27] MEDS ORDERED: MTP25TSR PO (11:03)
[2019-07-27] MEDS ORDERED: OMEG1CAP PO (11:03)
[2019-07-27] MEDS ORDERED: LISI-556 PO (11:03)
[2019-07-27] MEDS ORDERED: ASPI-999 PO (11:41)
== END 2019-07-23 22:00 | disposition short-term general hospital (02) ==
LOC: EDUNIT# 16:46 → ER 16:47
DX: S32.402A Unspecified fracture of left acetabulum, initial encounter for closed fracture (principal); S20.212A Contusion of left front wall of thorax, initial encounter; I10 Essential (primary) hypertension; I25.2 Old myocardial infarction; I25.10 Atherosclerotic heart disease of native coronary artery without angina pectoris; I48.0 Paroxysmal atrial fibrillation; F17.210 Nicotine dependence, cigarettes, uncomplicated; Z88.2 Allergy status to sulfonamides; Z79.82 Long term (current) use of aspirin; Z82.49 Family history of ischemic heart disease and other diseases of the circulatory system; Z80.3 Family history of malignant neoplasm of breast; W11.XXXA Fall on and from ladder, initial encounter
CPT/HCPCS: 36415; 70450; 71045; 71260; 72125; 72128; 72131; 74177; 80053; 81000; 82150; 83690; 83735; 85025; 85610; 85730; 96361; 96374; 96376

== ENCOUNTER 2019-09-24 13:00 | Outpatient (RCR) | payer MEDICARE, OTHER ==
[~2019-09-24 13:00] MED LIST changes: +ASPI-999 PO; +ATOR10TA PO; +METH750T3 PO; +MTP25TSR PO; +OMEG1CAP PO; +OXC5T PO
== END 2019-11-18 | disposition home or self-care (01) ==
PROVIDERS: ATTEND Orthopaedic Surgery
DX: S32.492D Other specified fracture of left acetabulum, subsequent encounter for fracture with routine healing (principal); Z87.891 Personal history of nicotine dependence

== ENCOUNTER → 2021-02-03 | Outpatient (CLI) | payer MEDICARE, OTHER ==
[~2021-02-03] MED LIST changes: +ASPI-1238 PO; -ASPI-983 PO; -LISI-556 PO; +LISI-729 PO; +METH-732 PO; -METH750T3 PO; +NF-LOVAZAC PO; -OMEG1CAP PO
--- NOTE | 2021-02-03 15:34 | Diagnostic Imaging Report ---
EXAMINATION: CT chest without contrast (lung screening). TECHNIQUE: Multiple contiguous axial images were obtained through the chest without the use of intravenous contrast according to lung cancer screening protocol. All CT scans use one or more of the following dose optimizing techniques: automated exposure control, MA and/or KvP adjustment based on patient size and exam type or iterative reconstruction. HISTORY: 40 pack year history of smoking. COMPARISON: CT chest 07/23/2019 FINDINGS: Thyroid: The thyroid is normal. Mediastinum: Heart size is normal without significant pericardial effusion. Calcifications of the aorta and coronary vessels. Thoracic aorta is normal in caliber. No suspicious lymphadenopathy. Lungs and airways: There are background emphysematous changes of the lungs without consolidation, pleural effusion, or pneumothorax. There is atelectasis within the lung bases. Stable 0.7 x 0.5 cm inferior left lower lobe pulmonary nodule. Stable size of 0.4 cm left lower lobe subpleural pulmonary nodule. No new suspicious pulmonary nodule. There is bronchial wall thickening. Mucus or debris within the right mainstem bronchus. Upper abdomen: Stable right adrenal adenoma. Musculoskeletal: Degenerative changes of the spine without suspicious osseous lesion or compression fracture. IMPRESSION: 1. No new suspicious pulmonary nodules. Recommend continued annual low-dose CT screening. 2. Stable left lower lobe pulmonary nodules measuring up to 0.6 cm average. 3. COPD. LUNG-RADS CATEGORY: 2 MODIFIER: S Dictated by: Dictated on workstation # [id number]
== END ==
LOC: RAD 13:45
PROVIDERS: ATTEND Pediatrics
DX: Z12.2 Encounter for screening for malignant neoplasm of respiratory organs (principal); J44.9 Chronic obstructive pulmonary disease, unspecified; R91.8 Other nonspecific abnormal finding of lung field; Z87.891 Personal history of nicotine dependence
CPT/HCPCS: 71271

== ENCOUNTER → 2021-09-19 | Outpatient (CLI) | payer MEDICARE, OTHER ==
[~2021-09-19] MED LIST changes: -LISI-729 PO; +LISI5TAB20 PO
== END ==
LOC: CARD 10:30
PROVIDERS: ATTEND Internal Medicine Cardiovascular Disease
DX: I10 Essential (primary) hypertension (principal)
CPT/HCPCS: 93306

== ENCOUNTER → 2021-12-20 | Outpatient (CLI) | payer MEDICARE, OTHER ==
[~2021-12-20] MED LIST changes: +CATHETER FLUSH 10 ML SYR IVP PRN; +REGADENOSON 0.4 MG/5 ML SYR (LEXISCAN) IV ONE
[2021-12-20 09:12] VITALS: BP 150/73
[2021-12-20 09:18] VITALS: BP 153/71
--- NOTE | 2021-12-20 14:22 | Cardiology Stress Test Report ---
Stress Test Report Date of Procedure/Referring: Date of Procedure: Dec 20, 2021 PCP Carlos Schulte MD Admitting Physician Admitting Physician: Attending Physician: Alexia Padilla Indications: HTN Baseline Heart Rate: 43 Baseline Blood Pressure: Blood Pressure Systolic: 153 Blood Pressure Diastolic: 71 Baseline Vitals Vital Signs Date Time Temp Pulse Resp B/P (MAP) Pulse Ox O2 Delivery O2 Flow Rate FiO2 12/20/21 09:12 57 18 150/73 (98) 99 Baseline EKG: Baseline EKG: NSR Summary After explaining the procedure to the patient, he signed a consent and then brought to the stress nuclear laboratory. Patient received 0.4 mg Lexiscan for stress test, ECG, heart rate and blood pressure were monitored continuously. Resting and stress dose of radio tracer were injected, imaging was acquired and reviewed in short axis, horizontal long axis and vertical long axis views. TID: 0.95 SSS: 12 SDS: 12 EF: 42 1. Patient was unable to exercise beyond 1 minute and 25 seconds on standard Hernandez protocol. Test was converted to Lexiscan Myoview stress test. 2. Baseline sinus bradycardia, occasional PVCs noted during test. 3. Reversible ischemia involving the mid to apical anterior wall and anterolateral wall 4. Normal left ventricular size, hypokinesia at the anterior wall and anterolateral wall, ejection fraction 42% LIZETT PÉREZ MD Dec 20, 2021 14:22
== END ==
LOC: CARD 07:45
PROVIDERS: ATTEND Physician Assistant
DX: I10 Essential (primary) hypertension (principal)
CPT/HCPCS: 78452; 93017; A9502

== ENCOUNTER 2022-01-03 11:00 | Day surgery (SDC) | payer MEDICARE, OTHER ==
[~2022-01-03] VITALS: Ht 167.6 cm; Wt 63.6 kg
[2022-01-03] VITALS (10 sets, daily range): BP systolic 102–155; BP diastolic 54–72
[2022-01-03 07:24] LABS: BILIRUBIN,URINE NEGATIVE (NEGATIVE); CLARITY,URINE CLEAR; COLOR,URINE YELLOW; GLUCOSE, URINE (UA) NEGATIVE (NEGATIVE); HEMATOCRIT 44 % (40-54); HEMOGLOBIN 14.7 g/dL (13.3-17.7); KETONES,URINE NEGATIVE (NEGATIVE); LEUKOCYTE ESTERASE ,URINE NEGATIVE (NEGATIVE); MEAN CORPUSCULAR HEMOGLOBIN 33 pg (25-34); MEAN CORPUSCULAR HGB CONC 34 g/dL (32-36); MEAN CORPUSCULAR VOLUME 97 fL (80-99); MEAN PLATELET VOLUME 9.8 fL (9.0-12.2); NITRITE,URINE NEGATIVE (NEGATIVE); PLATELET COUNT 166 10^3/uL (130-400); PROTEIN,URINE NEGATIVE (NEGATIVE); WHITE BLOOD COUNT 6.7 10^3/uL (4.3-11.0)
[2022-01-03 07:33] LABS: BACTERIA,URINE NEGATIVE /HPF; WBC,URINE RARE /HPF
[2022-01-03 07:40] LABS: PROTHROMBIN TIME PATIENT 13.3 SEC (12.2-14.7)
[2022-01-03 07:46] LABS: BILIRUBIN,TOTAL 1.2 MG/DL (0.1-1.0); CREATININE SERUM 1.02 MG/DL (0.60-1.30); POTASSIUM 3.9 MMOL/L (3.6-5.0); TOTAL PROTEIN 6.8 GM/DL (6.4-8.2)
--- NOTE | 2022-01-03 08:02 | Diagnostic Imaging Report ---
INDICATION: Abnormal stress test. Chest pain. Comparison with 07/23/2019. FINDINGS: The lungs are well-aerated. No infiltrates are seen. Heart is not enlarged. No pulmonary edema. No pneumothorax or pleural effusion. No bony abnormalities. IMPRESSION: Normal portable chest. Dictated by: Dictated on workstation # [id number]
--- NOTE | 2022-01-03 09:00 | Conscious Sedation/ASA ---
Conscious Sedation Pre-Proced Time 09:00 ASA Score 3 For ASA 3 and 4: Consider anesthesia and medical clearance. Also, for patients with a history of failed moderate sedation consider anesthesia. Airway Lungs Heart ASA score ASA 1: a normal healthy patient ASA 2: a patient with a mild systemic disease (mid diabetes, controlled hypertension, obesity ASA 3: a patient with a severe systemic disease that limits activity (angina, COPD, prior Myocardial infarction) ASA 4: a patient with an incapacitating disease that is a constant threat to life (CHF, renal failure) ASA 5: a moribund patient not expected to survive 24 hrs. (ruptured aneurysm) ASA 6: a declared brain- patient whose organs are being harvested. For emergent operations, add the letter E after the classification Mallampati Classification Grade 3 Sedation Plan Analgesia, Amnesia, Plan communicated to team members, Discussed options with patient/fam, Discussed risks with patient/fam The patient is an appropriate candidate to undergo the planned procedure, sedation, and anesthesia. The patient immediately re-assessed prior to indication. LIZETT PÉREZ MD Jan 03, 2022 09:00
--- NOTE | 2022-01-03 09:02 | Discharge Inst-Post CATH ---
Discharge Inst-CATH/EP Problems Reviewed?: Yes Post Cardiac Cath/EP D/C Inst Follow Up/Plan Appointment with Dr. Yusuf's office in 4 weeks <b>CARDIAC CATH/EP PROCEDURE DISCHARGE INSTRUCTIONS</b> ACTIVITY * Go Home directly and rest. * Limit activity of the leg (or wrist if it was used) for 7 days including aerobics, swimming, jogging, bicycling, etc. * Restrict stair-climbing for 7 days if possible, if not, climb up with your non-cath leg, then bring together on the same step. * Avoid lifting, pushing, pulling or excessive movement of the affected extremity for 7 days. * Customary sexual activity may be resumed after 2 days-use caution not to use a position that strains or causes pain to the affected extremity. * No driving for 24 hours. * NO SMOKING. * Avoid straining for bowel movements for 7 days. * Gentle walking on level ground is allowed. * Returning to work will depend on the type of procedure and the results. Your doctor will discuss this with you. CALL YOUR DOCTOR FOR ANY OF THE FOLLOWING: *If bleeding from the puncture site occurs- Apply gentle pressure to site with clean cloth and call your doctor or EMS. * If a knot or lump forms under the skin, increases in size, or causes pain. * If bruising appears to be worsening or moving further down your leg instead of disappearing. * Temperature above 101 F. CARE OF YOUR GROIN INCISION; * Bruising or purple discoloration of the skin near the puncture site is common. * You may shower only, no bathtub bathing for 5 days. Be careful to avoid slipping as your leg may feel stiff. * If a closure device was used on your femoral artery, please see the attached guide regarding care of the device and your leg. * Leave dressing on FOR 24 hours. CARE OF YOUR WRIST INCISION; * Bruising or purple discoloration of the skin near the puncture site is common. * You may shower. * DO NOT submerge wrist. * Leave dressing on FOR 24 hours. LIZETT YUSUF MD Jan 03, 2022 09:02
--- NOTE | 2022-01-03 09:05 | Cardiac Cath Report ---
Cardiac Cath Report Physician (s)/Funeral Service Practitioner/Embalmer (s) Physician LIZETT PÉREZ MD Pre-Procedure Diagnosis Pre-Procedure Diagnosis: chest pain, unstable angina Post-Procedure Note Procedure Start Date: Jan 03, 2022 Name of Procedure: Left heart catheterization Findings/Procedure Note PROCEDURE NOTE: 71-year-old gentleman with history of frequent PVCs. Had an abnormal stress test with anterior wall and anterolateral ischemia, scheduled for cardiac catheterization possible PTCA. After explaining the procedure to the patient, all pros and cons were explained, all questions were answered. The patient signed the consent and then he was placed on the cardiac catheterization laboratory. Groin was prepped SL fashion local anesthesia was used. Sheath placed in the right femoral artery. Peggy right and left catheter were used to access the coronary system. Peggy right was prolapsed to the left ventricular cavity, pressure was measured, no left ventriculogram was done, pullback LV to aorta was done. At the end of the procedure the sheath was removed. 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 Normal left ventricular end-diastolic pressure DISCUSSION AND RECOMMENDATION: Abnormal stress test is probably due to extracardiac attenuation. No intervention is warranted. Continue with current treatment Anesthesia Type: Conscious Sedation Estimated blood loss (mL): 15 ml Contrast Amount: 27 ml Total Radiation Dose: 122 mGy Post-Procedure Diagnosis Post-operative diagnosis: Coronary artery disease Hypertension Premature ventricular contractions Hyperlipidemia LIZETT PÉREZ MD Jan 03, 2022 09:05
[~2022-01-03 11:00] MED LIST changes: -CATHETER FLUSH 10 ML SYR IVP PRN; +HEParin (CATH LAB) 2,000 ML IV ONE; +HEParin 1000 UNIT/ML (10ML VIAL) FOR BOLUS ONE; +LIDOCAINE 1% INJ 20 ML VIAL ONE; +LISI10TA25 PO; +MIDAZOLAM 5 MG/5 ML (VERSED) VIAL ONE; +NITRO DRIP 25000 MCG/D5W 0 ML IV ONE; +NS IV 1000 ML 1,000 ML IV SCH; +NS IV 1000 ML 1,000 ML ONE; +PATIENT MAY USE OWN MEDS, ALL PO SCH; -REGADENOSON 0.4 MG/5 ML SYR (LEXISCAN) IV ONE; +VERAPAMIL 5 MG/2 ML (CALAN) VIAL IV ONE; +fentaNYL INJ 100 MCG/2 ML AMP ONE
== END 2022-01-03 13:20 | disposition home or self-care (01) ==
LOC: CATH 11:00
PROVIDERS: ATTEND Internal Medicine Cardiovascular Disease
DX: I25.110 Atherosclerotic heart disease of native coronary artery with unstable angina pectoris (principal); I49.3 Ventricular premature depolarization; I11.0 Hypertensive heart disease with heart failure; I50.22 Chronic systolic (congestive) heart failure; E78.2 Mixed hyperlipidemia; R06.09 Other forms of dyspnea; I25.2 Old myocardial infarction; I65.23 Occlusion and stenosis of bilateral carotid arteries; F17.210 Nicotine dependence, cigarettes, uncomplicated; Z79.82 Long term (current) use of aspirin; Z79.899 Other long term (current) drug therapy
CPT/HCPCS: 71045; 80053; 80061; 81000; 85027; 85610; 85730; 87081; 93005; 93458; C1760; C1894; 36415

== ENCOUNTER 2022-02-21 09:30 | Day surgery (SDC) | payer MEDICARE, OTHER ==
[~2022-02-21] VITALS: Ht 167.6 cm; Wt 62.9 kg
[~2022-02-21 09:30] MED LIST changes: -HEParin (CATH LAB) 2,000 ML IV ONE; -HEParin 1000 UNIT/ML (10ML VIAL) FOR BOLUS ONE; -LIDOCAINE 1% INJ 20 ML VIAL ONE; -MIDAZOLAM 5 MG/5 ML (VERSED) VIAL ONE; -NITRO DRIP 25000 MCG/D5W 0 ML IV ONE; -NS IV 1000 ML 1,000 ML IV SCH; -NS IV 1000 ML 1,000 ML ONE; -PATIENT MAY USE OWN MEDS, ALL PO SCH; -VERAPAMIL 5 MG/2 ML (CALAN) VIAL IV ONE; -fentaNYL INJ 100 MCG/2 ML AMP ONE
[2022-02-21] MEDS ORDERED: LIDOCAINE 1% INJ 20 ML VIAL INJ ONE (09:45)
[2022-02-21 09:48] VITALS: BP 139/81
[2022-02-21] MEDS ORDERED: LIDOCAINE 1% INJ 20 ML VIAL ONE (09:59)
--- NOTE | 2022-02-21 10:44 | Implantation of Loop Monitor ---
Implant of Loop Monitior IMPLANTATION OF LOOP MONITOR REPORT DATE OF PROCEDURE: 02/21/22 PREOP DIAGNOSIS: Nonsustained ventricular tachycardia POSTOP DIAGNOSIS: Nonsustained ventricular tachycardia PROCEDURE DETAILS: The patient is a 72 male with history of recurrent palpitation, frequent PVCs and nonsustained ventricular tachycardia, syncope long-term surveillance. Therefore implantable loop recorder was discussed and agreed with the patient. Informed consent was taken. All risks and complications were discussed at length. The patient was draped and prepped in the usual sterile fashion. Local anesthesia was lidocaine, which was given in the substernal area close to the 4th intercostal space. Loop monitor [employer] with serial number [id number] was implanted according to the protocol. Steri-Strips were placed at the end of the procedure. There were no complications and the patient tolerated the procedure well. The device was interrogated with a voltage of. ANESTHESIA: Local anesthesia with lidocaine. COMPLICATIONS: None CONTRAST/FLUOROSCOPY: None CONCLUSION: Successful implantation of loop monitor with no complication FINAL DIAGNOSIS: Paroxysmal atrial fibrillation Nonsustained ventricular tachycardia Syncope Coronary artery disease LIZETT PÉREZ MD Feb 21, 2022 10:44
== END 2022-02-21 12:18 | disposition home or self-care (01) ==
LOC: CATH 09:30
PROVIDERS: ATTEND Internal Medicine Cardiovascular Disease
DX: I47.2 Ventricular tachycardia (principal); Z79.82 Long term (current) use of aspirin; F17.210 Nicotine dependence, cigarettes, uncomplicated; I11.0 Hypertensive heart disease with heart failure; I50.9 Heart failure, unspecified; E78.2 Mixed hyperlipidemia; I25.10 Atherosclerotic heart disease of native coronary artery without angina pectoris; I65.23 Occlusion and stenosis of bilateral carotid arteries
CPT/HCPCS: 33285; C1764